=== PATIENT | female | born 1955 | race Caucasian/White ===

== ENCOUNTER 2020-05-29 10:11 | Inpatient (IN) | payer BC, MEDICARE, SELFPAY ==
[2020-05-29] VITALS (11 sets, daily range): BP systolic 117–138; BP diastolic 63–84; PULSE 55–81; RESP 16–20; TEMP 36.7–37; O2SAT 91–96; BMI 33.7
--- NOTE | 2020-05-29 10:19 | XRR_ITS ---
PROCEDURE INFORMATION: Exam: XR Chest, 1 View Exam date and time: 05/29/2020 10:21 AM Age: 64 years old Clinical indication: Cough and dyspnea; Patient HX: Covid +. TECHNIQUE: Imaging protocol: XR of the chest Views: 1 view. COMPARISON: [facility] Chest 2 views 04/14/2015 3:03 PM FINDINGS: Lungs: No focal peripheral lung consolidation, air bronchogram formation, or silhouette sign. Pleural space: No pleural effusion or pneumothorax. Heart/Mediastinum: The cardiac silhouette is not enlarged. The mediastinal contours are normal. Bones/joints: No acute osseous abnormality. XR/XR chest 1V portable [id number] IMPRESSION: No radiographic signs of pneumonia. Noncontrast CT CHEST would be more sensitive in detecting mild or early changes of COVID-19 pneumonia.
--- NOTE | 2020-05-29 10:19 | ECG_ITS ---
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 Measurements Intervals [place] Rate: 74 P: 41 AL: 153 QRS: 30 QRSD: 94 T: 20 QT: 374 QTc: 415 Interpretive Statements SINUS RHYTHM LOW QRS VOLTAGE IN PRECORDIAL LEADS [QRS DEFLECTION < 1.0 mV IN CHEST LEADS] NONSPECIFIC ST & T-WAVE ABNORMALITY No previous ECG available for comparison Electronically Signed On 05-30-2020 18:10:23 CDT by Erlin Bedoya M.D. [id number]
--- NOTE | 2020-05-29 11:01 | ED_ITS ---
HPI - SOB/Dyspnea General: Chief Complaint: Shortness of Breath/Dyspnea Stated Complaint: SOB Time Seen by Provider: 05/29/20 10:16 History of Present Illness: HPI Narrative: 84-year-old female comes in complaining of productive cough anosmia that began yesterday she states she had a rapid COVID test done at [facility] yesterday. We called and checked there using the Torres antibody testing. She states this initially began after she been out mowing she was exposed to a lot of dust thought she had an allergy reaction she seen her primary care doctor was started on steroids inhalers that seem to help but then she became worse again including running a fever. She has had minimally productive cough. MD elicited complaint: shortness of breath and cough Pertinent past history: asthma Onset (ago): day(s) Timing: constant Severity: moderate Exacerbating factors: exertion and coughing Relieving factors: rest Known history of: asthma Associated symptoms: Reports chest congestion and cough; Deny abdominal pain, chest pain, diaphoresis, dizziness, extremity pain, fever(s), hemoptysis, lightheadedness, myalgias, nausea, orthopnea, palpi tations, paresthesias, polydipsia, polyuria, rash, syncope or vomiting Treatment prior to arrival: bronchodilator Review of Systems Const: Denies: fever(s) or diaphoresis ENMT: Denies: throat pain, ear or mastoid pain, nasal discharge or nasal congestion Card: Denies: chest pain, palpitations, lightheadedness, syncope or orthopnea Resp: Reports: chest congestion; Denies: hemoptysis GI: Denies: abdominal pain, nausea or vomiting : Denies: flank pain, difficulty voiding, dysuria, urinary frequency or urinary urgency Musc: Denies: extremity pain Skin/Breast: Denies: rash or pruritus Neuro: Denies: dizziness Endo: Denies: polyuria or polydipsia PFSH ED PFSH: Medical History (Updated 05/31/20 @ 15:52 by Jeffrey Hickman DO) CKD (chronic kidney disease) stage 2, GFR 60-89 ml/min Hypertension Morbid obesity Surgical History History of cholecystectomy Family History Other CAD (coronary artery disease) Denies family history of Cancer Social History (Updated 05/29/20 @ 16:15 by Melania Vasquez MD) Smoking and tobacco status: never smoked Alcohol intake: never Substance/Drug Use: never Household members: spouse Marital status: 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 Exam Const: COMMON NORMALS: no acute distress GENERAL APPEARANCE: cooperative and comfortable ORIENTATION/CONSCIOUSNESS: Yes awake, Yes oriented to person, Yes oriented to place and Yes oriented to time HENMT: COMMON NORMALS: normocephalic, atraumatic and hearing grossly normal bilaterally HEAD & SCALP: normocephalic and atraumatic Eye: COMMON NORMALS: Equal, round and reactive pupils present, EOMs intact bilaterally, conjunctivae normal and no scleral icterus CONJUNCTIVA: Yes conjunctivae normal PUPIL: Yes Equal, round and reactive pupils present Neck/C-Spine: COMMON NORMALS: full ROM, no lymphadenopathy, supple and no JVD Lymph: LYMPHATIC: no lymphadenopathy noted and no lymphedema noted Resp: COMMON NORMALS: normal respiratory effort, No retractions, No use of accessory muscles and clear to auscultation bilaterally AUSCULTATION: clear to auscultation bilaterally Cardio: COMMON NORMALS: no JVD, regular rate, regular rhythm and No murmurs present (Cardio) RATE: regular rate RHYTHM: regular rhythm GI: COMMON NORMALS: Soft to palpation and No hepatosplenomegaly present AUSCULTATION: Yes normoactive bowel sounds PALPATION: Yes Soft to palpation, No Tenderness to palpation present (GI), No Guarding due to palpation present (GI) and Yes No hepatosplenomegaly present Extremity: COMMON NORMALS: normal to inspection, capillary refill normal, no clubbing, cyanosis or edema, no calf tenderness and no pedal edema Neuro: SENSORIUM/ORIENTATION: Yes oriented to person, Yes oriented to place and Yes oriented to time Skin: COMMON NORMALS: no rashes or lesions noted GENERAL SKIN EXAM: no rashes or lesions noted Course Vital Signs: Vital signs: Vital Signs Temperature 97.8 F 05/31/20 12:00 Pulse Rate 62 05/31/20 15:00 Respiratory Rate 21 H 05/31/20 15:00 Blood Pressure 139/74 05/31/20 15:00 Pulse Oximetry 94 05/31/20 15:00 MDM - SOB/Dyspnea MDM Narrative: Medical decision making narrative: Rapid antigen test was positive. Her inflammatory tests are generally negative and I am little bit concerned however by the fact that she is immunosuppressed on the prednisone has a history of underlying chronic respiratory disease and her baseline oxygen saturation is borderline to low. I think at this point it be best for her to be admitted to observation in the VICU to make sure she does not deteriorate. Discussed with the patient and she is in agreement discussed Dr. Vasquez who is on for the VQ and she will see the patient. Lab Data: Labs: Lab Results 05/29/20 05/29/20 05/29/20 Range/Units 11:00 11:00 11:00 WBC 5.4 (4.0-10.0) 10^3/ uL RBC 4.67 (4.1-5.3) 10^6/u L Hgb 14.6 (11.5-15.3) g/dL Hct 45.1 (37.0-47.0) % MCV 96.6 (81-99) fL MCH 31.3 (28.0-34.0) pg MCHC 32.4 (30.0-36.0) g/dL RDW 13.1 (12.1-15.1) % Plt Count 169 (130-400) 10^3/c mm MPV 10.9 H (7.4-10.4) fL Neut % (Auto) 79.0 % Lymph % (Auto) 11.4 % Towns % (Auto) 9.0 % Eos % (Auto) 0.0 % Baso % (Auto) 0.2 % Neut # (Auto) 4.28 (1.8-7.7) 10^3/u L Lymph # (Auto) 0.6 L (0.8-4.8) 10^3/u L Towns # (Auto) 0.5 (0.2-0.9) 10^3/u L Eos # (Auto) 0.0 (0.0-0.8) 10^3/u L Baso # (Auto) 0.0 (0.0-0.1) 10^3/u L Nucleated RBC % (a uto) 0 % Nucleated RBCs # 0.0 /100WBC Fibrinogen 446 (174-498) mg/dL D-Dimer 0.45 (0-0.59) ug/mIFE U Sodium 131 L (136-145) mmol/L Potassium 3.8 (3.5-5.1) mmol/L Chloride 93 L (98-107) mmol/L Carbon Dioxide 27 (22-29) mmol/L Anion Gap 14.8 (5-19) BUN 14 (8-23) mg/dL Creatinine 0.8 (0.5-0.9) mg/dL GFR Calculation 72.0 L (90-130) mL/min Glucose 131 H (65-115) mg/dL POC Glucose (70-110) mg/dL Calculated Osmolal ity 270 L (285-295) mOsm/k g Lactic Acid (0.5-2.2) mmol/L Calcium 9.4 (8.5-10.5) mg/dL Ferritin 771 H (15-150) ng/mL Total Bilirubin 0.4 (0.15-1.2) mg/dL AST 47 H (0-32) U/L ALT 41 H (0-33) U/L Alkaline Phosphata se 66 (35-105) IU/L Lactate Dehydrogen ase 164 (135-214) U/L C-Reactive Protein 21.2 H (0.0-4.9) mg/L Total Protein 8.8 H (6.6-8.7) g/dL Albumin 4.1 (3.5-5.2) g/dL Globulin 4.7 H (1.3-4.6) g/dL Procalcitonin 0.05 (0-0.5) ng/mL SARS-CoV-2 Ag (Rap id) (Negative) 05/29/20 05/29/20 05/29/20 Range/Units 11:27 13:47 19:48 WBC (4.0-10.0) 10^3/ uL RBC (4.1-5.3) 10^6/u L Hgb (11.5-15.3) g/dL Hct (37.0-47.0) % MCV (81-99) fL MCH (28.0-34.0) pg MCHC (30.0-36.0) g/dL RDW (12.1-15.1) % Plt Count (130-400) 10^3/c mm MPV (7.4-10.4) fL Neut % (Auto) % Lymph % (Auto) % Towns % (Auto) % Eos % (Auto) % Baso % (Auto) % Neut # (Auto) (1.8-7.7) 10^3/u L Lymph # (Auto) (0.8-4.8) 10^3/u L Towns # (Auto) (0.2-0.9) 10^3/u L Eos # (Auto) (0.0-0.8) 10^3/u L Baso # (Auto) (0.0-0.1) 10^3/u L Nucleated RBC % (a uto) % Nucleated RBCs # /100WBC Fibrinogen (174-498) mg/dL D-Dimer (0-0.59) ug/mIFE U Sodium (136-145) mmol/L Potassium (3.5-5.1) mmol/L Chloride (98-107) mmol/L Carbon Dioxide (22-29) mmol/L Anion Gap (5-19) BUN (8-23) mg/dL Creatinine (0.5-0.9) mg/dL GFR Calculation (90-130) mL/min Glucose (65-115) mg/dL POC Glucose 150 (70-110) mg/dL Calculated Osmolal ity (285-295) mOsm/k g Lactic Acid 1.2 (0.5-2.2) mmol/L Calcium (8.5-10.5) mg/dL Ferritin (15-150) ng/mL Total Bilirubin (0.15-1.2) mg/dL AST (0-32) U/L ALT (0-33) U/L Alkaline Phosphata se (35-105) IU/L Lactate Dehydrogen ase (135-214) U/L C-Reactive Protein (0.0-4.9) mg/L Total Protein (6.6-8.7) g/dL Albumin (3.5-5.2) g/dL Globulin (1.3-4.6) g/dL Procalcitonin (0-0.5) ng/mL SARS-CoV-2 Ag (Rap id) Positive H (Negative) 05/30/20 05/30/20 05/30/20 Range/Units 05:30 05:30 05:30 WBC 3.6 L (4.0-10.0) 10^3/ uL RBC 4.42 (4.1-5.3) 10^6/u L Hgb 13.6 (11.5-15.3) g/dL Hct 42.5 (37.0-47.0) % MCV 96.2 (81-99) fL MCH 30.8 (28.0-34.0) pg MCHC 32.0 (30.0-36.0) g/dL RDW 12.9 (12.1-15.1) % Plt Count 162 (130-400) 10^3/c mm MPV 11.3 H (7.4-10.4) fL Neut % (Auto) 56.8 % Lymph % (Auto) 30.0 % Towns % (Auto) 11.8 % Eos % (Auto) 0.3 % Baso % (Auto) 0.3 % Neut # (Auto) 2.03 (1.8-7.7) 10^3/u L Lymph # (Auto) 1.1 (0.8-4.8) 10^3/u L Towns # (Auto) 0.4 (0.2-0.9) 10^3/u L Eos # (Auto) 0.0 (0.0-0.8) 10^3/u L Baso # (Auto) 0.0 (0.0-0.1) 10^3/u L Nucleated RBC % (a uto) 0 % Nucleated RBCs # 0.0 /100WBC Fibrinogen (174-498) mg/dL D-Dimer (0-0.59) ug/mIFE U Sodium 134 L (136-145) mmol/L Potassium 3.9 (3.5-5.1) mmol/L Chloride 96 L (98-107) mmol/L Carbon Dioxide 29 (22-29) mmol/L Anion Gap 12.9 (5-19) BUN 14 (8-23) mg/dL Creatinine 0.6 (0.5-0.9) mg/dL GFR Calculation 100.3 (90-130) mL/min Glucose 86 (65-115) mg/dL POC Glucose (70-110) mg/dL Calculated Osmolal ity 274 L (285-295) mOsm/k g Lactic Acid (0.5-2.2) mmol/L Calcium 9.3 (8.5-10.5) mg/dL Ferritin (15-150) ng/mL Total Bilirubin 0.3 (0.15-1.2) mg/dL AST 41 H (0-32) U/L ALT 37 H (0-33) U/L Alkaline Phosphata se 56 (35-105) IU/L Lactate Dehydrogen ase (135-214) U/L C-Reactive Protein 21.6 H (0.0-4.9) mg/L Total Protein 7.4 (6.6-8.7) g/dL Albumin 3.7 (3.5-5.2) g/dL Globulin 3.7 (1.3-4.6) g/dL Procalcitonin (0-0.5) ng/mL SARS-CoV-2 Ag (Rap id) (Negative) 05/30/20 05/30/20 05/30/20 Range/Units 05:30 05:30 07:35 WBC (4.0-10.0) 10^3/ uL RBC (4.1-5.3) 10^6/u L Hgb (11.5-15.3) g/dL Hct (37.0-47.0) % MCV (81-99) fL MCH (28.0-34.0) pg MCHC (30.0-36.0) g/dL RDW (12.1-15.1) % Plt Count (130-400) 10^3/c mm MPV (7.4-10.4) fL Neut % (Auto) % Lymph % (Auto) % Towns % (Auto) % Eos % (Auto) % Baso % (Auto) % Neut # (Auto) (1.8-7.7) 10^3/u L Lymph # (Auto) (0.8-4.8) 10^3/u L Towns # (Auto) (0.2-0.9) 10^3/u L Eos # (Auto) (0.0-0.8) 10^3/u L Baso # (Auto) (0.0-0.1) 10^3/u L Nucleated RBC % (a uto) % Nucleated RBCs # /100WBC Fibrinogen 395 (174-498) mg/dL D-Dimer <= 0.27 (0-0.59) ug/mIFE U Sodium (136-145) mmol/L Potassium (3.5-5.1) mmol/L Chloride (98-107) mmol/L Carbon Dioxide (22-29) mmol/L Anion Gap (5-19) BUN (8-23) mg/dL Creatinine (0.5-0.9) mg/dL GFR Calculation (90-130) mL/min Glucose (65-115) mg/dL POC Glucose 98 (70-110) mg/dL Calculated Osmolal ity (285-295) mOsm/k g Lactic Acid (0.5-2.2) mmol/L Calcium (8.5-10.5) mg/dL Ferritin 697 H (15-150) ng/mL Total Bilirubin (0.15-1.2) mg/dL AST (0-32) U/L ALT (0-33) U/L Alkaline Phosphata se (35-105) IU/L Lactate Dehydrogen ase 176 (135-214) U/L C-Reactive Protein (0.0-4.9) mg/L Total Protein (6.6-8.7) g/dL Albumin (3.5-5.2) g/dL Globulin (1.3-4.6) g/dL Procalcitonin (0-0.5) ng/mL SARS-CoV-2 Ag (Rap id) (Negative) Discharge Plan Discharge Patient Disposition: Admitted As Inpatient Admit Provider: Melania Vasquez Clinical Impression: COVID-19 virus infection, Morbid obesity, CKD (chronic kidney disease) stage 2, GFR 60-89 ml/min, Acute exacerbation of chronic obstructive airways disease Condition: Stable Interventions: ED Discharge Assessment Last Done: 05/29/20 16:58 ED Charges Last Done: 05/29/20 16:58 Discharge Date/Time: 05/29/20 17:18 Coding Level of Care Code ED Hand Turner for Lindsayg Fwd Exam Comprehensive
[2020-05-29 11:19] LABS: Basophils % 0.2 %; Hematocrit 45.1 % (37.0-47.0); Hemoglobin 14.6 g/dL (11.5-15.3); Lymphocytes # 0.6 10^3/uL (0.8-4.8); Lymphocytes % 11.4 %; Mean Corpuscular HGB Conc 32.4 g/dL (30.0-36.0); Mean Corpuscular Hemoglobin 31.3 pg (28.0-34.0); Mean Corpuscular Volume 96.6 fL (81-99); Mean Platelet Volume 10.9 fL (7.4-10.4); Monocytes # 0.5 10^3/uL (0.2-0.9); Neutrophils # 4.28 10^3/uL (1.8-7.7); Nucleated Red Blood Cells % 0 %; Platelet Count 169 10^3/cmm (130-400); Red Blood Count 4.67 10^6/uL (4.1-5.3); Red Cell Distribution Width 13.1 % (12.1-15.1); White Blood Count 5.4 10^3/uL (4.0-10.0)
[2020-05-29 11:30] LABS: Fibrinogen 446 mg/dL (174-498)
[2020-05-29 11:32] LABS: D Dimer 0.45 ug/mIFEU (0-0.59)
[2020-05-29 11:44] LABS: Procalcitonin 0.05 ng/mL (0-0.5)
[2020-05-29 11:55] LABS: Alanine Aminotransferase 41 U/L (0-33); Albumin Level 4.1 g/dL (3.5-5.2); Alkaline Phosphatase 66 IU/L (35-105); Anion Gap 14.8 (5-19); Aspartate Amino Transferase 47 U/L (0-32); Blood Urea Nitrogen 14 mg/dL (8-23); C Reactive Protein 21.2 mg/L (0.0-4.9); Calcium 9.4 mg/dL (8.5-10.5); Carbon Dioxide 27 mmol/L (22-29); Chloride 93 mmol/L (98-107); Ferritin 771 ng/mL (15-150); Globulin 4.7 g/dL (1.3-4.6); Glucose 131 mg/dL (65-115); Lactate Dehydrogenase 164 U/L (135-214); Osmolality Calculated 270 mOsm/kg (285-295); Potassium 3.8 mmol/L (3.5-5.1); Sodium 131 mmol/L (136-145); Total Bilirubin 0.4 mg/dL (0.15-1.2); Total Protein 8.8 g/dL (6.6-8.7)
[2020-05-29 11:57] LABS: Lactic Sepsis W/Reflex 1.2 mmol/L (0.5-2.2)
--- NOTE | 2020-05-29 13:55 | PC.NURSE ---
Rapid Covid Swab obtained and taken to lab.
[2020-05-29 14:20] LABS: SARS Covid-2 Antigen Positive (Negative)
--- NOTE | 2020-05-29 16:14 | P.HP_ITS ---
Providers/Chief Complaint Admitting Physician: Melania Vasquez MD Primary Care Provider: Michael Alston MD Chief Complaint: SOB/COVID POSITIVE History of Present Illness Jennifer Warner is a 64 year old female with PMHx of HTN, CKD stage 2, presents from home this afternoon following development of worsening persistent primarily dry cough with some intermittent white/clear sputum production, shortness of breath, loss of taste since early this morning, fatigue and generalized weakne ss. Patient recalls being seen by Dr. Alston earlier this week secondary to shortness of breath and cough which she attributed to being outside and inhaling a lot of dust while mowing the lawn. She was prescribed Breo inhaler as well as some steroids which resulted in significant improvement in her symptoms particularly between Sunday and Sunday. On she started to feel a little fatigued and cough began to recur. She also developed some mild diarrhea days a week wore on she felt progressively more weak and fatigued. 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 She presented to the [facility] yesterday for testing and was found to be positive for COVID-19. Overnight she felt weaker, more short of breath and had more persistent cough which prompted ER visit today. Rapid testing for COVID-19 here is positive as well. She did check her oxygen saturation earlier this morning at home and it was about 85% on room air. She is not typically oxygen dependent. She does admit to having had a chronic cough that seems to flare-up with exposure to particular allergens but is otherwise typically controlled. She lives at home with her and her elderly 91-year-old mother. Neither of them have had any symptoms. She has about 15 grandchildren who have been coming to visit more frequently over the past month, none of them have had any symptoms that she is aware of. She got more nervous about potentially having COVID-19 when she made her morning coffee and could not tasted it. She denies having had any malaise, abdominal pain, nausea/vomiting, changes in her urination, blood in her urine or her stool, lightheadedness or dizziness, headaches, loss of smell. Work-up so far reveals normal white count at 5.4, hemoglobin at 14.6, mild hyponatremia with a sodium of 131 with otherwise normal electrolytes and normal renal function, mild hyperglycemia with a blood glucose of 131, normal LDH, procalcitonin, lactic acid, ferritin of 7721, AST of 47, ALT of 41, CRP of 21.2, normal d-dimer and fibrinogen. Chest x-ray is reported as unremarkable. I requested CT chest for further evaluation. Vital signs so far have been stable and she is afebrile. Saturating at about 92% on room air. I called and confirmed that we have enough Remdesevir if needed for at least 1 patient. She will be admitted to the viral ICU. Currently on isolation precautions. Review of Systems Const: Reports: fatigue; Denies: fever(s), chills, body aches, malaise or night sweats Eyes: Denies: change in vision ENMT: Reports: dry mouth and other (loss of taste) Card: Denies: chest pain, palpitations, edema, swelling of feet/ankles, lightheadedness or syncope Resp: Reports: dyspnea, productive cough (clear sputum) and non-productive cough; Denies: wheezing GI: Reports: diarrhea; Denies: abdominal pain, nausea, vomiting, hematemesis or hematochezia : Denies: difficulty voiding, dysuria, urinary frequency or hematuria Musc: Denies: back pain Skin/Breast: Denies: rash Neuro: Reports: weakness in extremities (generalized); Denies: numbness in extremities, difficulty walking or dizziness Psych: Denies: anxiety Medications/Allergies Home Medications Medication Instructions Recorded Confirmed Last Taken Type albuterol sulfate 1 puff INHALATION Q6H PRN 05/29/20 05/29/20 05/29/20 History aspirin 325 mg PO DAILY 05/29/20 05/29/20 05/29/20 History cholecalciferol (vitamin D3) 25 mcg PO DAILY 05/29/20 05/29/20 05/29/20 History [Vitamin D3] fluticasone furoate-vilanterol 1 inh INHALATION DAILY 05/29/20 05/29/20 05/29/20 History [Breo Ellipta] irbesartan-hydrochlorothiazide 1 tab PO DAILY 05/29/20 05/29/20 05/29/20 History prednisone 20 mg PO DAILY 05/29/20 05/29/20 05/29/20 History Allergies Allergy/AdvReac Type Severity Reaction Status Date / Time No Known Allergies Allergy Verified 05/29/20 10:30 PFSH Acute PFSH: Medical History (Updated 05/29/20 @ 16:29 by Melania Vasquez MD) CKD (chronic kidney disease) stage 2, GFR 60-89 ml/min Hypertension Morbid obesity Surgical History History of cholecystectomy Family History Other CAD (coronary artery disease) Denies family history of Cancer Social History (Updated 05/29/20 @ 16:15 by Melania Vasquez MD) Smoking and tobacco status: never smoked Alcohol intake: never Substance/Drug Use: never Household members: spouse Marital status: 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 Last Vital Signs Temp 98.1 F 05/29/20 10:21 Pulse 81 05/29/20 10:21 Resp 18 05/29/20 10:21 BP 126/80 05/29/20 10:21 Pulse Ox 92 05/29/20 10:21 Weight last 48 hrs Weight 100.698 kg Physical Exam Const: COMMON NORMALS: no acute distress, patient oriented x3 and alert GENERAL APPEARANCE: cooperative and comfortable; not ill appearing NUTRITIONAL APPEARANCE: obese ORIENTATION/CONSCIOUSNESS: Yes awake HENMT: COMMON NORMALS: normocephalic, atraumatic and hearing grossly normal bilaterally HEAD & SCALP: normocephalic and atraumatic Eye: COMMON NORMALS: Equal, round and reactive pupils present, EOMs intact bilaterally and conjunctivae normal CONJUNCTIVA: Yes conjunctivae normal PUPIL: Yes Equal, round and reactive pupils present Neck/C-Spine: COMMON NORMALS: full ROM GENERAL: Yes normal visual inspection and Yes trachea midline Resp: COMMON NORMALS: normal respiratory effort, No retractions, No use of accessory muscles and clear to auscultation bilaterally EFFORT & INSPECTION: Yes able to speak in complete sentences, Yes symmetric chest movement and No tachypneic AUSCULTATION: clear to auscultation bilaterally OTHER: on RA; oxygen saturation is about 90 to 92% Cardio: COMMON NORMALS: regular rate, regular rhythm, S1 normal heart sound present, S2 normal heart sound present and No murmurs present (Cardio) RATE: regular rate RHYTHM: regular rhythm HEART SOUNDS: S1 normal heart sound present and S2 normal heart sound present GI: COMMON NORMALS: Normal to inspection, nondistended, normoactive bowel sounds present, Soft to palpation and non-tender INSPECTION: Yes central obesity PALPATION: Yes Soft to palpation Extremity: COMMON NORMALS: normal to inspection, full ROM and no clubbing, cyanosis or edema; negative for no pedal edema Neuro: COMMON NORMALS: patient oriented x3, moves all extremities, no focal motor deficits, no sensory deficits noted and gait normal Psych: COMMON NORMALS: mental status grossly normal, Normal thought process present, cooperative, normal affect and speech normal SPEECH: Yes normal speech THOUGHT PROCESS: Normal thought process present Skin: COMMON NORMALS: no rashes or lesions noted, no jaundice, no petechiae and no mottling GENERAL SKIN EXAM: no rashes or lesions noted Data : 05/29/20 11:00 05/29/20 11:00 Micro: Microbiology 05/29/20 11:08 Blood Culture - Preliminary Blood SPECIMEN COLLECTED 05/29/20 11:00 Blood Culture - Preliminary Blood SPECIMEN COLLECTED A&P Assessment and plan (1) COVID-19 virus infection: -Initially tested yesterday at [facility], found to be positive -Overnight had worsening shortness of breath, ageusia, more persistent primarily dry cough with some intermittent white/clear sputum production and generally feeling unwell -Repeat testing here, rapid COVID-19 test positive -Currently saturating at 90 to 92% on room air. Consider Remdesevir if noted hypoxia or need for supplemental oxygen support -Not overtly ill-appearing -Initiate dexamethasone -No leukocytosis, has been afebrile, lactic acid, d-dimer, pro calcitonin, LDH normal, noted ferritin elevation at 771, CRP-21.2. Continue to monitor inflammatory markers -Close monitoring of respiratory status -Close monitoring of vital signs -Advair, Spiriva, ascorbic acid, zinc -CXR unremarkable -order CT chest -noted mild AST elevation-47, ALT-41 -f/u blood cx, sputum cx Status: Acute (2) Morbid obesity: -BMI-34 kg/m2 Status: Chronic (3) Hypertension: -VSS; continue to monitor -resume oral antihypertensive Status: Chronic Qualifiers: Hypertension type: essential hypertension Qualified Code(s): I10 - Essential (primary) hypertension (4) CKD (chronic kidney disease) stage 2, GFR 60-89 ml/min: -baseline Cr is 0.9-1.0 Status: Chronic Additional A&P Information -resume ASA -hyperglycemia, anticipate more of this with steroid use; Accuchecks, ISS -mild hyponatremia; Na-131; gentle IVF hydration -regular diet as tolerated -GI ppx with PPI -DVT ppx with lovenox -Dispo: home -Code status: FULL code -[facility] Medical Necessity Statement*: Jennifer Prince Timmy's hospital stay will be less than 2 midnights for management of COVID-19 infection with concern for potential for hypoxia given current oxygen saturation and symptoms. Time Spent in Patient Care: Greater than 35 minutes (>than 50% of time spent in counselling and/or direct pt care on unit) . Coding Level of Care Code Acute Beck Operator for Chg Fwd Diagnoses COVID-19 virus infection U07.1 Morbid obesity E66.01 Hypertension I10 Hypertension type: essential hypertension CKD (chronic kidney disease) stage 2, GFR 60-89 ml/min N18.2
--- NOTE | 2020-05-29 18:03 | PC.NURSE ---
PATIENT TO VICU 15 VIA WHEELCHAIR WITH MANAGER ORGANIZATIONAL ; PATIENT DENIES ANY INCREASE IN SOB AT THIS TIME ; PATIENT DENIES ANY PAIN AT THIS TIME ; VSS ; PATIENT MONITORED AND ORIENTED TO ROOM ; CALL LIGHT AT PATIENT SIDE
--- NOTE | 2020-05-29 18:16 | PC.NURSE ---
PATIENT O2 SATS DECLINED TO 88-89 ; PATIENT PLACED ON 2LPM NC
[2020-05-29] MEDS: sodium chloride 0.9% 1,000 ML 75 ML IV (19:19)
[2020-05-29] MEDS: ascorbic acid 500 mg Tablet PO (19:22)
[2020-05-29] MEDS: enoxaparin 40 mg/0.4 mL Syringe SUBCUT (19:24)
[2020-05-29 19:54] LABS: Glucose Point of Care 150 mg/dL (70-110)
[2020-05-30] VITALS (25 sets, daily range): BP systolic 106–151; BP diastolic 54–97; PULSE 55–75; RESP 16–25; TEMP 36.7–37.3; O2SAT 90–96
[2020-05-30 05:56] LABS: Basophils % 0.3 %; Eosinophils % 0.3 %; Hematocrit 42.5 % (37.0-47.0); Hemoglobin 13.6 g/dL (11.5-15.3); Lymphocytes # 1.1 10^3/uL (0.8-4.8); Mean Corpuscular Hemoglobin 30.8 pg (28.0-34.0); Mean Corpuscular Volume 96.2 fL (81-99); Mean Platelet Volume 11.3 fL (7.4-10.4); Monocytes # 0.4 10^3/uL (0.2-0.9); Monocytes % 11.8 %; Neutrophils # 2.03 10^3/uL (1.8-7.7); Neutrophils % 56.8 %; Nucleated Red Blood Cells % 0 %; Platelet Count 162 10^3/cmm (130-400); Red Blood Count 4.42 10^6/uL (4.1-5.3); Red Cell Distribution Width 12.9 % (12.1-15.1); White Blood Count 3.6 10^3/uL (4.0-10.0)
[2020-05-30 06:10] LABS: Fibrinogen 395 mg/dL (174-498)
[2020-05-30 06:12] LABS: D Dimer <= 0.27 ug/mIFEU (0-0.59)
[2020-05-30 06:15] LABS: C Reactive Protein 21.6 mg/L (0.0-4.9); Ferritin 697 ng/mL (15-150)
[2020-05-30 06:16] LABS: Alanine Aminotransferase 37 U/L (0-33); Albumin Level 3.7 g/dL (3.5-5.2); Alkaline Phosphatase 56 IU/L (35-105); Anion Gap 12.9 (5-19); Aspartate Amino Transferase 41 U/L (0-32); Blood Urea Nitrogen 14 mg/dL (8-23); Calcium 9.3 mg/dL (8.5-10.5); Carbon Dioxide 29 mmol/L (22-29); Chloride 96 mmol/L (98-107); Globulin 3.7 g/dL (1.3-4.6); Glomerular Filtration Rate 100.3 mL/min (90-130); Glucose 86 mg/dL (65-115); Osmolality Calculated 274 mOsm/kg (285-295); Potassium 3.9 mmol/L (3.5-5.1); Sodium 134 mmol/L (136-145); Total Bilirubin 0.3 mg/dL (0.15-1.2); Total Protein 7.4 g/dL (6.6-8.7)
[2020-05-30 06:19] LABS: Lactate Dehydrogenase 176 U/L (135-214)
[2020-05-30 07:42] LABS: Glucose Point of Care 98 mg/dL (70-110)
--- NOTE | 2020-05-30 08:02 | PC.NURSE ---
PATIENT RESTING QUIETLY IN BED ; PATIENT DENIES ANY INCREASE IN SOB OR PAIN AT THIS TIME ; VSS
--- NOTE | 2020-05-30 09:22 | P.PN_ITS ---
Subjective Subjective: Interval history: Patient did well overnight per nursing staff, remains on 2 L nasal cannula with saturation at about 94%. He received bolus of Remdesevir and is now on maintenance daily dosing. Mild leukopenia today, otherwise inflammatory markers are within normal limits other than ferritin and CRP which are trending down; improved LFTs. Hemodynamically stable, afebrile. Voiding independently without difficulty. Had requested ED physician to order CT scan of the chest which was not done nor ordered. Now requiring 3 L NC, reports feeling about the same as she did yesterday. Has had 2 bouts of loose stool. Medications: Reviewed: Yes Medication Review Details: Active Medications Generic Name Dose Route Start Last Admin Trade Name Freq PRN Reason Stop Dose Admin Acetaminophen 650 mg 05/29/20 17:22 Tylenol PO Q6H PRN Mild/Mod Pain Or Temp >/= 101 Ascorbic Acid 500 mg 05/29/20 18:00 05/29/20 19:22 Vitamin C PO 500 mg BID GABE Administration Aspirin 325 mg 05/30/20 09:00 Aspirin PO DAILY GABE Dexamethasone 5 mg 05/30/20 09:00 Decadron IVP DAILY GABE Dextrose 25 ml 05/29/20 17:22 D50w IVP ONCE PRN hypoglycemia prot ocol Protocol Dextrose 50 ml 05/29/20 17:22 D50w IVP PRN PRN hypoglycemia prot ocol Protocol Enoxaparin Sodium 40 mg 05/29/20 19:00 05/29/20 19:24 Lovenox SUBCUT 40 mg Q24H GABE Administration Glucagon 1 mg 05/29/20 17:22 Glucagen IM ONCE PRN Adult Acute Hypog lycemia Prot. Protocol Hydrochlorothiazid e 12.5 mg 05/30/20 09:00 Hctz PO DAILY GABE Dextrose 500 mls @ 100 mls /hr 05/29/20 17:22 D5w IV ONCE PRN Adult Acute Hypog lycemia Prot Protocol Sodium Chloride 1,000 mls @ 75 ml s/hr 05/29/20 17:22 05/30/20 07:49 Sodium Chloride 0.9% IV Not Given .[id number] GABE remdesivir (EUA) 1 00 mg/ 100 mls @ 100 mls /hr 05/30/20 19:00 Sodium Chloride IV 06/02/20 19:59 Q24H GABE Insulin Aspart 0 unit 05/29/20 18:00 05/30/20 07:50 Novolog SUBCUT Not Given WM&BEDTIME GABE Protocol Losartan Potassium 50 mg 05/30/20 09:00 Cozaar PO DAILY GABE Pantoprazole Sodiu m 40 mg 05/30/20 09:00 Protonix PO DAILY GABE Fluticasone/Salmet aleyda 1 puff 05/29/20 20:00 Advair Diskus 25 0-50 INHALATION BID.RESPIRATORY S CH Tiotropium [place] 18 mcg 05/30/20 08:00 Spiriva INHALATION DAILY.RESPIRATORY GABE Vitamin D 1,000 unit 05/30/20 09:00 Vitamin D3 PO DAILY GABE Zinc Gluconate 50 mg 05/30/20 09:00 Zinc Gluconate PO DAILY GABE No Known Allergies Allergy (Verified 05/29/20 10:30) Vitals/I&O/Wt Last Vital Signs Temp 98.0 F 05/30/20 07:42 Pulse 72 05/30/20 07:42 Resp 18 05/30/20 07:42 BP 108/54 05/30/20 07:42 Pulse Ox 94 05/30/20 07:42 05/29/20 05/30/20 05/30/20 22:59 06:59 14:59 Intake Total 1200 / 1200 240 / 240 Balance 1200 / 1200 240 / 240 Weight last 48 hrs Weight 100.698 kg Physical Exam Const: COMMON NORMALS: no acute distress, patient oriented x3 and alert GENERAL APPEARANCE: cooperative, comfortable and ill appearing (somewhat) NUT RITIONAL APPEARANCE: obese ORIENTATION/CONSCIOUSNESS: Yes awake OTHER: - fatigues easily HENMT: COMMON NORMALS: normocephalic, atraumatic and hearing grossly normal bilaterally HEAD & SCALP: normocephalic and atraumatic Eye: COMMON NORMALS: Equal, round and reactive pupils present, EOMs intact bilaterally and conjunctivae normal CONJUNCTIVA: Yes conjunctivae normal PUPIL: Yes Equal, round and reactive pupils present Neck/C-Spine: COMMON NORMALS: full ROM GENERAL: Yes normal visual inspection and Yes trachea midline Resp: COMMON NORMALS: normal respiratory effort, No retractions, No use of accessory muscles and clear to auscultation bilaterally EFFORT & INSPECTION: Yes able to speak in complete sentences, Yes symmetric chest movement and No tachypneic AUSCULTATION: clear to auscultation bilaterally OTHER: on 2-3 L NC; oxygen saturation is about 90 to 92% Cardio: COMMON NORMALS: regular rate, regular rhythm, S1 normal heart sound present, S2 normal heart sound present and No murmurs present (Cardio) RATE: regular rate and bradycardic (intermittently) RHYTHM: regular rhythm HEART SOUNDS: S1 normal heart sound present and S2 normal heart sound present GI: COMMON NORMALS: Normal to inspection, nondistended, normoactive bowel sounds present, Soft to palpation and non-tender INSPECTION: Yes central obesity PALPATION: Yes Soft to palpation Extremity: COMMON NORMALS: normal to inspection, full ROM and no clubbing, cyanosis or edema; negative for no pedal edema Neuro: COMMON NORMALS: patient oriented x3, moves all extremities, no focal motor deficits, no sensory deficits noted and gait normal SENSORIUM/ORIENTATION: Yes alert Psych: COMMON NORMALS: mental status grossly normal, Normal thought process present, cooperative, normal affect and speech normal SPEECH: Yes normal speech THOUGHT PROCESS: Normal thought process present Skin: COMMON NORMALS: no rashes or lesions noted, no jaundice, no petechiae and no mottling GENERAL SKIN EXAM: no rashes or lesions noted Data : 05/30/20 05:30 05/30/20 05:30 Micro: Microbiology 05/29/20 11:08 Blood Culture - Preliminary Blood SPECIMEN COLLECTED 05/29/20 11:00 Blood Culture - Preliminary Blood SPECIMEN COLLECTED A&P Assessment and plan (1) COVID-19 virus infection: -Rapid COVID-19 test positive -started on Remdesevir (day 2) due to noted hypoxia and need for supplemental oxygen support -on dexamethasone -mild leukopenia today, has been afebrile, lactic acid, d-dimer, pro calcitonin, LDH normal, ferritin trending down (771->697), CRP stable at -21.6. Continue to monitor inflammatory markers -Close monitoring of respiratory status -Close monitoring of vital signs -Advair, Spiriva, ascorbic acid, zinc -CXR unremarkable -noted mild AST elevation-47, ALT-41; improving -blood cx: prelim negative -f/u sputum cx once sample obtained Status: Acute (2) Morbid obesity: -BMI-34 kg/m2 Status: Chronic (3) Hypertension: -VSS; continue to monitor -continue oral antihypertensive Status: Chronic Qualifiers: Hypertension type: essential hypertension Qualified Code(s): I10 - Essential (primary) hypertension (4) CKD (chronic kidney disease) stage 2, GFR 60-89 ml/min: -baseline Cr is 0.9-1.0 Status: Chronic Additional A&P Information -on ASA -hyperglycemia, anticipate more of this with steroid use; Accuchecks, ISS -mild hyponatremia, improving; Na-131->134; gentle IVF hydration -regular diet as tolerated -GI ppx with PPI -DVT ppx with lovenox -Dispo: home -Code status: FULL code Attestations Medical Necessity Statement*: Patient requires hospitalization for continued management of COVID-19 infection, on Remdesevir due to noted hypoxia and need for supplemental oxygen support. Time Spent in Patient Care: Greater than 35 minutes (>than 50% of time spent in counselling and/or direct pt care on unit) . Coding Level of Care Code Acute City Planning Aide for [facility] Fwd Exam Comprehensive Diagnoses COVID-19 virus infection U07.1 Morbid obesity E66.01 Hypertension I10 Hypertension type: essential hypertension CKD (chronic kidney disease) stage 2, GFR 60-89 ml/min N18.2
[2020-05-30] MEDS: aspirin 325 mg Tablet PO (09:33)
[2020-05-30] MEDS: dexamethasone 10 mg/mL INJ 5 MG IVP (09:33)
[2020-05-30] MEDS: cholecalciferol (vitamin D3) 1,000 unit Tablet 1000 UNIT PO (09:33)
[2020-05-30] MEDS: ascorbic acid 500 mg Tablet PO ×2 (09:33→18:43)
[2020-05-30] MEDS: hydroCHLOROthiazide 25 mg Tablet 12.5 MG PO (09:34)
[2020-05-30] MEDS: losartan 50 mg Tablet PO (09:34)
[2020-05-30] MEDS: zinc gluconate 50 mg Tablet PO (09:35)
[2020-05-30] MEDS: pantoprazole DR 40 mg Tablet PO (09:35)
[2020-05-30] MEDS: sodium chloride 0.9% 1,000 ML 75 ML IV ×2 (10:08→22:26)
--- NOTE | 2020-05-30 12:43 | PC.NURSE ---
PATIENT O2 SAT DECREASED TO UNSUSTAINED 88-89 ; DR LARIOS NOTIFIED AND OXYGEN WAS INCREASED FROM 2LPM TO 3LPM
[2020-05-30 12:49] LABS: Glucose Point of Care 137 mg/dL (70-110)
--- NOTE | 2020-05-30 15:13 | PC.NURSE ---
PATIENT BS 178 ; PATIENT STATED SHE WOULD LIKE IT RECHECKED CLOSER TO MEDICATION ADMIN TIME D/T RECENTLY DRINKING APPLE JUICE
[2020-05-30 16:29] LABS: Glucose Point of Care 178 mg/dL (70-110)
[2020-05-30 16:29] LABS: Glucose Point of Care 157 mg/dL (70-110)
[2020-05-30] MEDS: enoxaparin 40 mg/0.4 mL Syringe SUBCUT (18:44)
[2020-05-30 19:27] LABS: Glucose Point of Care 165 mg/dL (70-110)
[2020-05-31] VITALS (22 sets, daily range): BP systolic 101–152; BP diastolic 50–79; PULSE 48–67; RESP 16–22; TEMP 36.3–37.4; O2SAT 91–97
[2020-05-31 05:03] LABS: Hematocrit 40.3 % (37.0-47.0); Hemoglobin 13.2 g/dL (11.5-15.3); Lymphocytes # 0.7 10^3/uL (0.8-4.8); Mean Corpuscular HGB Conc 32.8 g/dL (30.0-36.0); Mean Corpuscular Hemoglobin 31.4 pg (28.0-34.0); Mean Platelet Volume 11.4 fL (7.4-10.4); Monocytes # 0.3 10^3/uL (0.2-0.9); Monocytes % 11.9 %; Neutrophils # 1.19 10^3/uL (1.8-7.7); Neutrophils % 54.6 %; Nucleated Red Blood Cells % 0 %; Platelet Count 163 10^3/cmm (130-400); Red Cell Distribution Width 12.7 % (12.1-15.1); White Blood Count 2.2 10^3/uL (4.0-10.0)
[2020-05-31 05:33] LABS: Alanine Aminotransferase 34 U/L (0-33); Albumin Level 3.6 g/dL (3.5-5.2); Alkaline Phosphatase 50 IU/L (35-105); Anion Gap 13.5 (5-19); Aspartate Amino Transferase 31 U/L (0-32); Blood Urea Nitrogen 13 mg/dL (8-23); C Reactive Protein 14.9 mg/L (0.0-4.9); Carbon Dioxide 24 mmol/L (22-29); Chloride 98 mmol/L (98-107); Globulin 3.9 g/dL (1.3-4.6); Glomerular Filtration Rate 123.8 mL/min (90-130); Glucose 108 mg/dL (65-115); Osmolality Calculated 271 mOsm/kg (285-295); Potassium 3.5 mmol/L (3.5-5.1); Sodium 132 mmol/L (136-145); Total Bilirubin 0.2 mg/dL (0.15-1.2); Total Protein 7.5 g/dL (6.6-8.7)
[2020-05-31 05:34] LABS: Ferritin 639 ng/mL (15-150)
[2020-05-31 05:42] LABS: Lactate Dehydrogenase 158 U/L (135-214)
--- NOTE | 2020-05-31 07:33 | PC.NURSE ---
Provider notified of changes in lab values and the down trend of Sodium and WBC. Patient is drinking fluids ok and voiding with no difficulties. Provider gave new order to discontinue continuous IV fluid.
[2020-05-31] MEDS: ascorbic acid 500 mg Tablet PO ×2 (09:17→18:33)
[2020-05-31] MEDS: aspirin 325 mg Tablet PO (09:18)
[2020-05-31] MEDS: dexamethasone 10 mg/mL INJ 6 MG IVP (09:19)
[2020-05-31] MEDS: cholecalciferol (vitamin D3) 1,000 unit Tablet 1000 UNIT PO (09:19)
[2020-05-31] MEDS: losartan 50 mg Tablet PO (09:26)
[2020-05-31] MEDS: zinc gluconate 50 mg Tablet PO (09:30)
[2020-05-31] MEDS: pantoprazole DR 40 mg Tablet PO (09:30)
[2020-05-31 11:28] LABS: Glucose Point of Care 109 mg/dL (70-110)
--- NOTE | 2020-05-31 14:11 | P.PN_ITS ---
Subjective Subjective: Interval history: Patient awake and sitting up in bed upon entering the room. She reported feeling better this morning with an episode of decreased energy this afternoon. Long discussion with patient about potential exposure, she stated that she is uncertain, no known exposure. Reported that she has been very cautious in public and always wears a mask. She reports that her smell is starting to return, able to taste apple pie at lunch. Reports thick sputum occasionally with cough. She has been using IS regularly since having it delivered today, discussed flutter valve and she was in agreement to trying this. Also discussed with patient sleeping on her stomach as able and she agreed. Vitals/I&O/Wt Last Vital Signs Temp 97.8 F 05/31/20 12:00 Pulse 61 05/31/20 14:00 Resp 20 H 05/31/20 14:00 BP 126/68 05/31/20 14:00 Pulse Ox 92 05/31/20 14:00 05/30/20 05/31/20 05/31/20 22:59 06:59 14:59 Intake Total 1562.5 / 2922.5 760 / 760 Balance 1562.5 / 2922.5 760 / 760 Physical Exam Const: COMMON NORMALS: patient oriented x3 and alert GENERAL APPEARANCE: cooperative ORIENTATION/CONSCIOUSNESS: Yes awake, Yes oriented to person, Yes oriented to place and Yes oriented to time HENMT: COMMON NORMALS: normocephalic and atraumatic HEAD & SCALP: normocephalic and atraumatic Neck/C-Spine: COMMON NORMALS: supple GENERAL: Yes normal visual inspection Resp: COMMON NORMALS: normal respiratory effort and clear to auscultation bila terally EFFORT & INSPECTION: Yes symmetric chest movement and Yes tachypneic AUSCULTATION: clear to auscultation bilaterally, no rhonchi and no wheezes Cardio: COMMON NORMALS: regular rate, regular rhythm and No murmurs present (Cardio) RATE: regular rate RHYTHM: regular rhythm GI: COMMON NORMALS: Soft to palpation and non-tender INSPECTION: No abdominal distension AUSCULTATION: Yes normoactive bowel sounds PALPATION: Yes Soft to palpation Extremity: COMMON NORMALS: no clubbing, cyanosis or edema and no calf tenderness Neuro: COMMON NORMALS: patient oriented x3, CN's II-XII intact bilaterally, moves all extremities and no focal motor deficits SENSORIUM/ORIENTATION: Yes alert, Yes oriented to person, Yes oriented to place and Yes oriented to time SPEECH: speech normal Psych: COMMON NORMALS: mental status grossly normal and cooperative Skin: COMMON NORMALS: no rashes or lesions noted GENERAL SKIN EXAM: no rashes or lesions noted Data : 05/31/20 04:55 05/31/20 04:55 Micro: Microbiology 05/29/20 11:08 Blood Culture - Preliminary Blood NEGATIVE TO DATE 05/29/20 11:00 Blood Culture - Preliminary Blood NEGATIVE TO DATE A&P Assessment and plan (1) COVID-19 virus infection: COVID-19 viral pneumonia Continue Remdesevir, day 3 Continue dexamethasone, increased to 6mg daily Aggressive pulmomary toilet IS and flutter valve ordered today Advair, Spiriva, ascorbic acid, zinc IVF discontinued, as PO intake is adequate Inflammatory markers improving today with improved oxygen requirements from 3-2 L NC Repeat blood work in the morning, hold off on further CXR at this time due to improvement Status: Acute (2) Hypertension: Blood pressure soft this morning HCTZ held due to hyponatremia Contiue home ARB Status: Chronic Qualifiers: Hypertension type: essential hypertension Qualified Code(s): I10 - Essential (primary) hypertension (3) CKD (chronic kidney disease) stage 2, GFR 60-89 ml/min: -baseline Cr is 0.9-1.0 Status: Chronic Additional A&P Information Hyponatremia: appears stable, likely secondary to HCTZ, holding at this time Dehydration resolved, IVF discontinued with good PO intake Leukopenia: secondary to viral infection, recheck in AM Intermittent bradycardia: appears to be while sleeping, asymptomatic, continue telemetry monitoring Dispo: home Diet: Regular GI ppx: PPI DVT ppx: Lovenox Code status: FULL code Attestations Medical Necessity Statement*: Patient requires further hospitalization due to COVID-19 viral pneumonia with hypoxemia Coding Level of Care Code Acute Internal Communications Specialist for [facility] Diagnoses COVID-19 virus infection U07.1 Hypertension I10 Hypertension type: essential hypertension CKD (chronic kidney disease) stage 2, GFR 60-89 ml/min N18.2
[2020-05-31] MEDS: enoxaparin 40 mg/0.4 mL Syringe SUBCUT (18:33)
--- NOTE | 2020-05-31 18:36 | PC.NURSE ---
gave spiriva and advair inhaler this morning at 0900. called [facility] to let them know patient had received medication.
[2020-06-01] VITALS (13 sets, daily range): BP systolic 107–138; BP diastolic 57–84; PULSE 47–67; RESP 12–29; TEMP 36.4–37.1; O2SAT 92–98
[2020-06-01 05:15] LABS: Hematocrit 42.6 % (37.0-47.0); Hemoglobin 13.6 g/dL (11.5-15.3); Lymphocytes # 0.8 10^3/uL (0.8-4.8); Lymphocytes % 29.9 %; Mean Corpuscular HGB Conc 31.9 g/dL (30.0-36.0); Mean Corpuscular Hemoglobin 31.3 pg (28.0-34.0); Mean Corpuscular Volume 98.2 fL (81-99); Mean Platelet Volume 11.6 fL (7.4-10.4); Monocytes # 0.4 10^3/uL (0.2-0.9); Monocytes % 14.9 %; Neutrophils # 1.47 10^3/uL (1.8-7.7); Neutrophils % 54.8 %; Nucleated Red Blood Cells % 0 %; Platelet Count 178 10^3/cmm (130-400); Red Blood Count 4.34 10^6/uL (4.1-5.3); Red Cell Distribution Width 12.7 % (12.1-15.1); White Blood Count 2.7 10^3/uL (4.0-10.0)
[2020-06-01 05:40] LABS: C Reactive Protein 10.2 mg/L (0.0-4.9); D Dimer <= 0.27 ug/mIFEU (0-0.59); Ferritin 660 ng/mL (15-150); Lactate Dehydrogenase 145 U/L (135-214)
[2020-06-01 05:41] LABS: Alanine Aminotransferase 36 U/L (0-33); Albumin Level 3.7 g/dL (3.5-5.2); Alkaline Phosphatase 51 IU/L (35-105); Anion Gap 13.9 (5-19); Aspartate Amino Transferase 26 U/L (0-32); Blood Urea Nitrogen 14 mg/dL (8-23); Calcium 9.4 mg/dL (8.5-10.5); Carbon Dioxide 25 mmol/L (22-29); Chloride 101 mmol/L (98-107); Globulin 4.1 g/dL (1.3-4.6); Glomerular Filtration Rate 100.3 mL/min (90-130); Glucose 100 mg/dL (65-115); Osmolality Calculated 278 mOsm/kg (285-295); Potassium 3.9 mmol/L (3.5-5.1); Sodium 136 mmol/L (136-145); Total Bilirubin 0.2 mg/dL (0.15-1.2); Total Protein 7.8 g/dL (6.6-8.7)
--- NOTE | 2020-06-01 09:01 | PC.NURSE ---
Pt resting in bed. Went to collect breakfast tray, give bathing supplies. Pt said eating makes her very weak, needed to rest for a bit. Pt denies any pain at this time or needs. Call light in reach. Will continue to monitor.
[2020-06-01] MEDS: dexamethasone 10 mg/mL INJ 6 MG IVP (09:15)
[2020-06-01] MEDS: cholecalciferol (vitamin D3) 1,000 unit Tablet 1000 UNIT PO (09:15)
[2020-06-01] MEDS: aspirin 325 mg Tablet PO (09:15)
[2020-06-01] MEDS: losartan 50 mg Tablet PO (09:15)
[2020-06-01] MEDS: ascorbic acid 500 mg Tablet PO ×2 (09:15→18:06)
[2020-06-01] MEDS: zinc gluconate 50 mg Tablet PO (09:15)
[2020-06-01] MEDS: pantoprazole DR 40 mg Tablet PO (09:15)
--- NOTE | 2020-06-01 13:15 | PC.NURSE ---
Patient calm & asleep in bed. Prone position. O2 decreased from 2 L/NC to off. At 5 minutes patient's oxygen saturation was 88-89%. At 10 minutes patient oxygen saturation was still at 88% and patient was back on oxygen at 1 L/NC. Returned O2 flow to 2L/NC and patient's saturation recovered to 92% almost immediately
[2020-06-01] MEDS: enoxaparin 40 mg/0.4 mL Syringe SUBCUT (18:24)
--- NOTE | 2020-06-01 19:23 | PM.PN ---
Subjective Subjective: Interval history: Patient awake in bed at time of exam earlier this afternoon. At time she reported that her fatigue has slightly improved and overall energy level has improved. She denies any chest pain, no abdominal pain, no nausea or vomiting. Reports that she is able to taste even more for food today. Reports continued cough, nonproductive today. Vitals/I&O/Wt Last Vital Signs Temp 98.0 F 06/01/20 18:00 Pulse 58 L 06/01/20 18:00 Resp 24 H 06/01/20 18:00 BP 134/84 06/01/20 18:00 Pulse Ox 94 06/01/20 18:00 06/01/20 06/01/20 06/01/20 06:59 14:59 22:59 Intake Total 1959 440 / 440 480 / 920 Balance 1959 440 / 440 480 / 920 Physical Exam Const: COMMON NORMALS: patient oriented x3 and alert GENERAL APPEARANCE: cooperative ORIENTATION/CONSCIOUSNESS: Yes awake, Yes oriented to person, Yes oriented to place and Yes oriented to time HENMT: COMMON NORMALS: normocephalic and atraumatic HEAD & SCALP: normocephalic and atraumatic Neck/C-Spine: COMMON NORMALS: supple GENERAL: Yes normal visual inspection Resp: COMMON NORMALS: normal respiratory effort and clear to auscultation bilaterally EFFORT & INSPECTION: Yes symmetric chest movement and Yes tachypneic AUSCULTATION: clear to auscultation bilaterally, no rhonchi and no wheezes Cardio: COMMON NORMALS: regular rate, regular rhythm and No murmurs present (Cardio) RATE: regular rate RHYTHM: regular rhythm GI: COMMON NORMALS: Soft to palpation and non-tender INSPECTION: No abdominal distension AUSCULTATION: Yes normoactive bowel sounds PALPATION: Yes Soft to palpation Extremity: COMMON NORMALS: no clubbing, cyanosis or edema and no calf tenderness Neuro: COMMON NORMALS: patient oriented x3, CN's II-XII intact bilaterally, moves all extremities and no focal motor deficits SENSORIUM/ORIENTATION: Yes alert, Yes oriented to person, Yes oriented to place and Yes oriented to time SPEECH: speech normal Psych: COMMON NORMALS: mental status grossly normal and cooperative Skin: COMMON NORMALS: no rashes or lesions noted GENERAL SKIN EXAM: no rashes or lesions noted Data : 06/01/20 04:00 06/01/20 04:00 A&P Assessment and plan (1) COVID-19 virus infection: COVID-19 viral pneumonia Continue Remdesevir, day 4 Hold dexamethasone dose for tomorrow and continue to monitor patient's symptoms Aggressive pulmomary toilet IS and flutter valve ordered today Advair, Spiriva, ascorbic acid, zinc IVF discontinued, as PO intake is adequate Inflammatory markers continue to show improvement Patient on 2 L of oxygen by nasal cannula at time of exam, weaned to 1 L and patient maintained 94% at that time. We will continue to wean to room air as tolerated Hold off on repeat blood work in the morning due to improvement, if any clinical change will repeat chest imaging and blood work Status: Acute (2) Hypertension: Blood pressure soft this morning HCTZ held due to hyponatremia, blood pressure stable, hyponatremia resolved Contiue home ARB Status: Chronic Qualifiers: Hypertension type: essential hypertension Qualified Code(s): I10 - Essential (primary) hypertension (3) CKD (chronic kidney disease) stage 2, GFR 60-89 ml/min: -baseline Cr is 0.9-1.0 Status: Chronic Additional A&P Information Hyponatremia: Resolved after holding hydrochlorothiazide Dehydration resolved Leukopenia: secondary to viral infection Intermittent bradycardia: appears to be while sleeping, asymptomatic, continue telemetry monitoring Dispo: home Diet: Regular GI ppx: PPI DVT ppx: Lovenox Code status: FULL code Attestations Medical Necessity Statement*: Patient requires continued hospitalization due to COVID-19 viral pneumonia Coding Level of Care Code Acute 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
[2020-06-02] VITALS (10 sets, daily range): BP systolic 102–138; BP diastolic 39–87; PULSE 48–61; RESP 14–21; TEMP 36.4–37.1; O2SAT 88–98
--- NOTE | 2020-06-02 08:20 | PC.SOCIAL ---
IMM Page 2 of [facility] explained to patient over the phone. Initialed, dated, and timed and given to CRYS Thomas in [facility] to place in patient's chart in addition to a copy to give to the patient.
[2020-06-02] MEDS: aspirin 325 mg Tablet PO (08:50)
[2020-06-02] MEDS: cholecalciferol (vitamin D3) 1,000 unit Tablet 1000 UNIT PO (08:50)
[2020-06-02] MEDS: ascorbic acid 500 mg Tablet PO (08:50)
[2020-06-02] MEDS: pantoprazole DR 40 mg Tablet PO (08:50)
[2020-06-02] MEDS: zinc gluconate 50 mg Tablet PO (08:50)
[2020-06-02] MEDS: losartan 50 mg Tablet PO (08:50)
--- NOTE | 2020-06-02 08:51 | PC.NURSE ---
Advair and Spiriva given per order.
--- NOTE | 2020-06-02 10:31 | PC.RESP ---
Patient's mar needed updating, see notes by nursing.
--- NOTE | 2020-06-02 10:44 | PC.NURSE ---
pt up and walking throughout room and unit, on RA at this time. O2 sat dropped to 88% RA, pt would then stop and take a couple deep breaths, instantly her o2 sat would rise to 92-93%. Lungs clear upon auscultation, pt midly short of breath. no acute distress noted. pt resting in bed at this time, no complaints.
--- NOTE | 2020-06-02 15:13 | P.DS_ITS ---
Discharge Providers Date of Admission: 05/30/20 09:17 Date of Discharge: June 02, 2020 Attending Provider at Admission: Melania Vasquez MD Attending Provider at Discharge: Sharona Sanderson DO Primary Care Provider: Michael Alston MD Diagnoses at Discharge Discharge Diagnosis (1) COVID-19 virus infection: Status: Acute (2) Hypertension: Status: Chronic Qualifiers: Hypertension type: essential hypertension Qualified Code(s): I10 - Essential (primary) hypertension (3) CKD (chronic kidney disease) stage 2, GFR 60-89 ml/min: Status: Chronic Reason for Visit Reason for Visit: SOB/COVID POSITIVE Hospital Course Hospital Course: Patient was seen and evaluated in the ED and admitted to the hospital for further evaluation and treatment due to COVID-19 viral pneumonia. Patient was noted to be hypoxic with initial saturations in the mid 80s on room air. She was started on oxygen by NC and at maximum required 3L by NC. She continued to have improvement with treatment of remdesivir and dexamethasone and oxygen was gradually weaned. On date of discharge she was weaned off of oxygen while at rest and vital signs remained stable. She had improvement of symptoms including smell and taste. Patient had home oxygen evaluation performed which showed that patient required 2L by NC with activity. Discussed with patient plan for discharge to home with oxygen and close follow up with PCP and she verbalized understanding and agreed with plan. Patient had hyponatremia while hospitalized and HCTZ was held. BP remained stable with this change. Physical Exam Const: COMMON NORMALS: patient oriented x3 and alert GENERAL APPEARANCE: cooperative ORIENTATION/CONSCIOUSNESS: Yes awake, Yes oriented to person, Yes oriented to place and Yes oriented to time HENMT: COMMON NORMALS: normocephalic and atraumatic HEAD & SCALP: normocephalic and atraumatic Neck/C-Spine: COMMON NORMALS: supple GENERAL: Yes normal visual inspection Resp: COMMON NORMALS: normal respiratory effort and clear to auscultation bilaterally EFFORT & INSPECTION: Yes symmetric chest movement and Yes tachypneic AUSCULTATION: clear to auscultation bilaterally, no rhonchi and no wheezes Cardio: COMMON NORMALS: regular rate, regular rhythm and No murmurs present (Cardio) RATE: regular rate RHYTHM: regular rhythm GI: COMMON NORMALS: Soft to palpation and non-tender INSPECTION: No abdominal distension AUSCULTATION: Yes normoactive bowel sounds PALPATION: Yes Soft to palpation Extremity: COMMON NORMALS: no clubbing, cyanosis or edema and no calf tenderness Neuro: COMMON NORMALS: patient oriented x3, CN's II-XII intact bilaterally, moves all extremities and no focal motor deficits SENSORIUM/ORIENTATION: Yes alert, Yes oriented to person, Yes oriented to place and Yes oriented to time SPEECH: speech normal Psych: COMMON NORMALS: mental status grossly normal and cooperative Skin: COMMON NORMALS: no rashes or lesions noted GENERAL SKIN EXAM: no rashes or lesions noted Discharge Data Data Completed and Pending: Completed Studies During Hospitalization Category Date Time Status XR chest 1V norma ble [id number] Stat Exams 05/29/20 10:19 Completed Pending at discharge Category Date Time Status Blood Culture Sta t Lab 05/29/20 11:08 Results Sputum Culture an d Gram Stain Stat Lab 05/29/20 10:19 Uncollected Vitals: Last Vital Signs Temp 97.9 F 06/02/20 11:48 Pulse 55 L 06/02/20 11:48 Resp 21 H 06/02/20 11:48 BP 114/81 06/02/20 11:48 Pulse Ox 95 06/02/20 14:00 Discharge Plan Discharge Patient Disposition: Home Condition: Stable Prescriptions: New Advair Diskus 250-50 mcg/dose Blister With Device 1 puff inhalation BID.RESPIRATORY 30 Days Qty: 1 RF: 0 Vitamin C 500 mg Tablet 500 mg PO BID 30 Days Qty: 60 RF: 0 irbesartan 150 mg tablet 150 mg PO DAILY 30 Days Qty: 30 RF: 0 Continued aspirin 325 mg Tablet 325 mg PO DAILY RF: 0 albuterol sulfate 90 mcg/actuation HFA aerosol inhaler 1 puff INHALATION Q6H PRN (Reason: Shortness Of Breath) RF: 0 Vitamin D3 25 mcg (1,000 unit) Tablet 25 mcg PO DAILY RF: 0 Discontinued irbesartan-hydrochlorothiazide 150-12.5 mg tablet 1 tab PO DAILY RF: 0 prednisone 20 mg tablet 20 mg PO DAILY RF: 0 Breo Ellipta 100-25 mcg/dose Blister With Device 1 inh INHALATION DAILY RF: 0 Discharge Orders: Discharge Order (Routine); Ordered 06/02/20 Ordered By: Sharona Sanderson Other Ambulatory Orders: DME: Oxygen (Order) Location: None Selected Ordered By: Sharona Sanderson Referrals: Michael Alston MD [Primary Care Provider] - 1-3 days Discharge Diet: Advance as tolerated Discharge Activity: Increase activity as tolerated and Oxygen as instructed Patient Instructions: Ascorbic Acid (Vitamin C) (By mouth), Irbesartan (By mouth), Viral Pneumonia (DC), Using Oxygen at Home Activity Restrictions/Additional Instructions: Continue on Advair inhaler as prescribed, Breo inhaler can be discontinued when using this. Albuterol inhaler as needed for shortness of breath. Increase activity as tolerated, listen to our body and do not push too hard too quickly. Monitor oxygen saturations at home and with any increase in shortness of breath, drop in oxygen levels or chest pain call your physician or present to the ED. Goal oxygen saturation >90-92%. Continue with oxygen by NC, 2L with activity or as needed. Continue with home quarantine at this time. Per CDC guidelines with severe in fection would recommend home quarantine for at least 20 days from initial onset of symptoms with improvement of symptoms and no fever for at least 48hrs without the use of fever reducing medications. HCTZ was stopped due to hyponatremia, low sodium. Please follow up with Dr. Alston and determine if future adjustments to blood pressure medications need to be arranged. Pres[place]artan [place] [facility] [place] For any acute illness or concer please call your physician or present to the ED Please call if you have any questions about your discharge paperwork. Thank you for allowing us to participate in your care. Discharge Attestations Time Spent in Discharge Care*: greater than 30 min Specific Discharge Activities: Specific discharge activities: educating patient, discussing with pcp/other providers and documenting/other paperwork Quality Metrics Clinical Quality Measures During this hospital stay, did patient experience: None Coding Level of Care Code Acute Primary School Teacher for [facility] Fwd Diagnoses COVID-19 virus infection U07.1 Hypertension I10 Hypertension type: essential hypertension CKD (chronic kidney disease) stage 2, GFR 60-89 ml/min N18.2
== END 2020-06-02 16:51 | disposition home or self-care (01) | DRG 177 ==
LOC: ER 10:47 → ICU 15:42
PROVIDERS: Admitting Provider Family Medicine; Emergency Provider Family Medicine; PCP Family Medicine; Visit Provider Family Medicine
DX: U07.1 COVID-19 (principal); J12.89 Other viral pneumonia; E87.1 Hypo-osmolality and hyponatremia; N18.2 Chronic kidney disease, stage 2 (mild); I12.9 Hypertensive chronic kidney disease with stage 1 through stage 4 chronic kidney disease, or unspecified chronic kidney disease; R09.02 Hypoxemia; Z79.82 Long term (current) use of aspirin; E86.0 Dehydration; R00.1 Bradycardia, unspecified; E66.01 Morbid (severe) obesity due to excess calories; Z68.34 Body mass index [BMI] 34.0-34.9, adult; R73.9 Hyperglycemia, unspecified
CPT/HCPCS: 12345; 36415; 36416; 71045; 80053; 82728; 82962; 83605; 83615; 84145; 85025; 85378; 85384; 86140; 87040; 87426; 93005; 96372; 96375; 99282; G0378; J1100; J1650; J1815; J7030

== ENCOUNTER 2021-11-18 07:26 | Outpatient (CLI) | payer MEDICARE, SELFPAY ==
--- NOTE | 2021-11-18 07:42 | MM_ITS ---
WS: [id number] BILATERAL DIGITAL SCREENING MAMMOGRAPHY WITH CAD CLINICAL INFORMATION: SCREENING HISTORY: Screening mammogram. No current complaints. COMPARISON: 018 TECHNIQUE: Bilateral CC and MLO views. FINDINGS: Scattered fibroglandular densities bilaterally. Stable punctate calcifications. Stable clustered calc ifications LEFT breast. No suspicious focal mass, asymmetry, calcifications, or architectural distort ion. No evidence of malignancy. MM/[place] [id number] IMPRESSION: BI-RADS: 2-Benign FOLLOW UP: 1 Year Follow-up Recommend return to annual screening mammography.
== END 2021-11-18 07:27 | disposition home or self-care (01) ==
PROVIDERS: PCP Family Medicine; Visit Provider Family Medicine
DX: Z12.31 Encounter for screening mammogram for malignant neoplasm of breast (principal)
CPT/HCPCS: 77067

== ENCOUNTER 2025-06-11 09:30 | Outpatient (CLI) | payer MEDICARE, OTHER, SELFPAY ==
--- NOTE | 2025-06-11 | MM_ITS ---
WS: [id number] BILATERAL SCREENING DIGITAL TOMOSYNTHESIS MAMMOGRAM WITH CAD HISTORY: ANNUAL SCREENING COMPARISON: 11/18/2021, 01/29/2018 Bilateral CC and MLO views with tomosynthesis and synthetic mammography submitted. Computer aided detection analyzed. Breast composition: There are scattered areas of fibroglandular density. No suspicious masses, microcalcifications or architectural distortion. Benign calcifications in each breast. Intramammary lymph nodes in the axillary tails of each breast. MM/MM scr tomosynthesis [id number] IMPRESSION: BI-RADS: 2 - Benign. FOLLOW UP: 1 Year Follow-up
== END 2025-06-11 09:31 | disposition home or self-care (01) ==
LOC: RAD 09:31
PROVIDERS: PCP Family Medicine; Visit Provider Family Medicine
DX: Z12.31 Encounter for screening mammogram for malignant neoplasm of breast (principal); R92.323 Mammographic fibroglandular density, bilateral breasts; R59.0 Localized enlarged lymph nodes
CPT/HCPCS: 77063; 77067

== ENCOUNTER 2025-06-12 16:32 | Oncology outpatient (recurring) (ONCR) | payer MEDICARE, OTHER, SELFPAY ==
--- NOTE | 2025-06-12 16:44 | PM.CONSULT ---
Providers/Reason For Consult Consulting Physician/Specialty*: Mehreen Alfred, FULL TIME- Reason for Consult*: hypercalcemia Requesting Physician: Michael Alston MD Attending Physician: Mehreen Alfred Primary Care Provider: Michael Alston MD History of Present Illness History of Present Illness Jennifer Warner is a 69 year old female with hypercalcemia from suspected myeloma (yet to be confirmed). I spoke with Dr Alston regarding treating the hypercalcemia.I arrived in surgical services and discussed treatment and potential side effects with Ms Warner. Dexamethasone IVP and Zofran IVP were ordered for premeds, Zometa 4 mg IV was ordered to be administered to the patient. She is accompanied by her and they are aware to present to the ER if they have any concerns of reactions/side effects. She will take dexamethasone 4 mg po daily as directed by Dr Alston. She will be seen in oncology on June 18 as scheduled. Medications/Allergies Home Medications ?Medication ?Instructions ?Recorded ?Confirmed ?Last Taken ?Type albuterol sulfate 90 mcg/actuation 1 puff inhalation Q6H PRN 05/29/20 05/29/20 05/29/20 History aerosol inhaler Shortness Of Breath aspirin 325 mg tablet 325 mg PO DAILY 05/29/20 05/29/20 05/29/20 History cholecalciferol (vitamin D3) 25 25 mcg PO DAILY 05/29/20 05/29/20 05/29/20 History mcg (1,000 unit) tablet (Vitamin D3) Allergies Allergy/AdvReac Type Severity Reaction Status Date / Time No Known Allergies Allergy Verified 05/29/20 10:30 PFSH Acute PFSH: Medical History (Updated 06/03/20 @ 00:00 by NICKO Valdez) CKD (chronic kidney disease) stage 2, GFR 60-89 ml/min Hypertension Surgical History History of cholecystectomy Family History Other CAD (coronary artery disease) Denies family history of Cancer Social History (Updated 05/29/20 @ 16:15 by Melania Vasquez MD) Smoking and tobacco/nicotine status: never used tobacco/nicotine Alcohol intake: never Substance/Drug Use: never Household members: spouse Marital status: 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
[2025-06-12 17:05] VITALS: BP 147/72; PULSE 66; RESP 16; TEMP 36.6; O2SAT 98
[2025-06-12] MEDS: ondansetron 2 mg/ML SDV 2 mL 8 MG IVP (17:37)
[2025-06-12] MEDS: zoledronic acid 4 MG in sodium chloride 0.9% (100 ml) 100 ML 420 MG IV (17:55)
[2025-06-12 18:40] VITALS: BP 130/69; PULSE 58; RESP 14; TEMP 36.8; O2SAT 97
--- NOTE | 2025-06-12 18:46 | PC.NURSE ---
18:40 IV PUSH MEDS GIVEN AND IV INFUSION GIVEN VIA IV PUMP. PT TOLERATED PROCEDURE WELL.
== END 2025-06-15 08:11 | disposition home or self-care (01) ==
LOC: OPS 16:51 → ONCMED 06-16 07:48
PROVIDERS: PCP Family Medicine; Visit Provider Nurse Practitioner
DX: C79.51 Secondary malignant neoplasm of bone (principal); E83.52 Hypercalcemia
CPT/HCPCS: 96365; J1100; J2405

== ENCOUNTER 2025-06-17 08:21 | Outpatient (CLI) | payer MEDICARE, OTHER, SELFPAY ==
--- NOTE | 2025-06-17 08:25 | CTR_ITS ---
PROCEDURE INFORMATION: Exam: CT Cervical Spine Without Contrast Exam date and time: 06/17/2025 9:24 AM Age: 69 years old Clinical indication: Radicular pain (radiculopathy); Cervical region; Pathological FX of ribs with routine healing, C/O of scapula pain bilaterally, nothing in rib area. Had lumbar FX with no known injury. ? HX of multiple myeloma; Additional info: Cervical thoracic spine pain/cervical radiculopathy TECHNIQUE: Imaging protocol: Computed tomography of the cervical spine without contrast. Radiation optimization: All CT scans at this facility use at least one of these dose optimization techniques: automated exposure control; mA and/or kV adjustment per patient size (includes targeted exams where dose is matched to clinical indication); or iterative reconstruction. COMPARISON: CR XR ribs RT mn 3V w CXR1V [id number] 06/03/2025 3:37 PM RADIATION DOSE METRICS: Total DLP (mGy-cm): 156.07 FINDINGS: Bones: No acute fracture. Moderate osteopenia. Osteolytic changes in the trabecular bone of the left transverse process of C3, image 42 series 3. See also image 19 series 7. Another area of subtle destructive trabecular bone changes noted in the anterior aspect of the left lateral mass of C2, image 19 series 7. Degenerative changes in the facet joints are responsible for cystic subchondral changes in the facets. Normal alignment. No significant disc bulge or herniation. No severe spinal canal stenosis. No significant neural foraminal narrowing. Lungs: Lung apices are normal. Soft tissues: Unremarkable. CT/CT cervical spin wo con* [id number] IMPRESSION: 1. No acute cervical spine fracture. 2. There are a few small foci of apparent osteolysis similar to those seen in the thoracic spine and again suspicious for multiple myel pretty focal pinky there may umair.
--- NOTE | 2025-06-17 08:25 | CTR_ITS ---
PROCEDURE INFORMATION: Exam: CT Thoracic Spine Without Contrast Exam date and time: 06/17/2025 9:27 AM Age: 69 years old Clinical indication: Pain in thoracic spine; With radiculopathy; Pathological FX of ribs with routine healing, C/O of scapula pain bilaterally, nothing in rib area. Had lumbar FX with no known injury. ? HX of multiple myeloma; Additional info: Thoracic spine pain/thoracic radiculopathy TECHNIQUE: Imaging protocol: Computed tomography of the thoracic spine without contrast. Radiation optimization: All CT scans at this facility use at least one of these dose optimization techniques: automated exposure control; mA and/or kV adjustment per patient size (includes targeted exams where dose is matched to clinical indication); or iterative reconstruction. COMPARISON: CT cervical spin wo con* [id number] 06/17/2025 9:24 AM RADIATION DOSE METRICS: Total DLP (mGy-cm): 710.11 FINDINGS: Bones/joints: No acute or chronic fractures. [id number]-[id number] osteopenia. There is a focal osteolytic lesion in the posterosuperior right paramedian T12 that has eroded cortical bone and trabecular bone within the vertebral body. Image 132 series 4, image 34 series 8. Another area of subtle osteolysis of the trabecular bone in anterior T4 is observed in addition to scattered small rounded somewhat lucent areas in other vertebral bodies. Normal alignment. No significant disc bulge or herniation. No severe spinal canal stenosis. No significant neural foraminal narrowing. Soft tissues: Unremarkable. CT/CT thoracic spin wo con* [id number] IMPRESSION: 1. No acute thoracic spine fracture. 2. Permeative pattern of changes in the vertebral bodies is highly suspicious for multiple myeloma.
--- NOTE | 2025-06-17 08:39 | CTR_ITS ---
PROCEDURE INFORMATION: Exam: CT Chest With Contrast; Diagnostic Exam date and time: 06/17/2025 9:31 AM Age: 69 years old Clinical indication: Chest wall pain; Pathological FX of ribs with routine healing, C/O of scapula pain bilaterally, nothing in rib area. Had lumbar FX with no known injury. ? HX of multiple myeloma; Additional info: Pathological FX of rib w/routine healing TECHNIQUE: Imaging protocol: Diagnostic computed tomography of the chest with contrast. Radiation optimization: All CT scans at this facility use at least one of these dose optimization techniques: automated exposure control; mA and/or kV adjustment per patient size (includes targeted exams where dose is matched to clinical indication); or iterative reconstruction. Contrast material: OMNI 350; Contrast volume: 100 ml; Contrast route: INTRAVENOUS (IV); COMPARISON: CR XR ribs RT mn 3V w CXR1V [id number] 06/03/2025 3:37 PM RADIATION DOSE METRICS: Total DLP (mGy-cm): 577.19 FINDINGS: Lungs: Unremarkable. No consolidation. No masses. Pleural spaces: Unremarkable. No pneumothorax. No pleural effusion. Heart: Unremarkable. No cardiomegaly. No pericardial effusion. Lymph nodes: Unremarkable. No enlarged lymph nodes. Vasculature: Unremarkable. No aortic aneurysm. Liver: There are multiple geographic low-density nonenhancing liver lesions consistent with cysts scattered throughout the liver. Gallbladder and biliary ducts: Post cholecystectomy. Post cholecystectomy. Bones/joints: There is a healing fracture of the posterolateral right 7th rib. This was present on previous radiographs from 05/2025. No new rib fractures. Note that a lytic lesion in the posterior T12 vertebral body is much better seen on CT thoracic spine images that have been reported separately. No significant abnormalities observed in appendicular skeleton included on the exam. Soft tissues: Unremarkable. CT/CT chest w con* [id number] IMPRESSION: 1. No acute findings. 2. Healing fracture right 7th rib
[2025-06-17] MEDS: iohexol 350 mg/mL 500 mL Btl (per mL) IV (09:38)
== END 2025-06-17 08:22 | disposition home or self-care (01) ==
LOC: RAD 08:21
PROVIDERS: PCP Family Medicine; Visit Provider Surgery
DX: S22.31XD Fracture of one rib, right side, subsequent encounter for fracture with routine healing (principal); X58.XXXD Exposure to other specified factors, subsequent encounter; K76.89 Other specified diseases of liver; Z90.49 Acquired absence of other specified parts of digestive tract
CPT/HCPCS: 71260; 72125; 72128

== ENCOUNTER 2025-06-18 08:02 | Oncology outpatient (recurring) (ONCR) | payer MEDICARE, OTHER, SELFPAY ==
[2025-06-18 09:24] LABS: Hematocrit 33.2 % (36-47); Hemoglobin 10.70 g/dL (11.27-16.99); Mean Corpuscular HGB Conc 32.2 g/dL (30-55); Mean Corpuscular Hemoglobin 30.1 pg (27-33); Mean Corpuscular Volume 93.3 fl (85-98); Nucleated Red Blood Cells % 0 %; Platelet Count 212 10^3/cmm (157-399); Red Blood Count 3.56 10^6/uL (3.85-5.65); White Blood Count 6.91 10^3/uL (3.29-11.43)
[2025-06-18 09:48] LABS: Alanine Aminotransferase 22 U/L (0-33); Albumin Level 3.1 g/dL (3.5-5.2); Alkaline Phosphatase 64 U/L (35-105); Anion Gap 11.9 (5-19); Aspartate Amino Transferase 17 U/L (0-32); Blood Urea Nitrogen 14 mg/dL (8-23); Calcium 9.6 mg/dL (8.5-10.5); Carbon Dioxide 25 mmol/L (22-29); Chloride 95 mmol/L (98-107); Creatinine Clr Calc Pharmacy 82.8992; Globulin 6.5 g/dL (1.3-4.6); Glucose 113 mg/dL (65-115); Osmolality Calculated 267 mOsm/kg (285-295); Potassium 3.9 mmol/L (3.5-5.1); Sodium 128 mmol/L (136-145); Total Protein 9.6 g/dL (6.6-8.7); Uric Acid 4.7 mg/dL (2.4-5.7)
[2025-06-18 10:12] LABS: Ferritin 359 ng/mL (15-150); Iron 30 ug/dL (37-145); Total Iron Binding Capacity 217 mcg/dl; Unsaturated Iron Binding 187 ug/dL (112-347)
[2025-06-18 10:28] LABS: Vitamin B12 257 pg/mL (232-1245)
[2025-06-19 09:05] LABS: PROTEIN, TOTAL 9.2 g/dL (6.1-8.1)
[2025-06-22 16:15] LABS: KAPPA LIGHT CHAIN, FREE, SERUM 147.4 mg/L (3.3-19.4); KAPPA/LAMBDA LIGHT CHAINS FREE 56.69 (0.26-1.65); LAMBDA LIGHT CHAIN, FREE, SERU 2.6 mg/L (5.7-26.3)
[2025-06-23 08:50] LABS: ALPHA 1 GLOBULIN 0.4 g/dL (0.2-0.3); ALPHA 2 GLOBULIN 0.9 g/dL (0.5-0.9); BETA 1 GLOBULIN 0.4 g/dL (0.4-0.6); BETA 2 GLOBULIN 0.3 g/dL (0.2-0.5)
== END 2025-06-18 23:59 | disposition home or self-care (01) ==
PROVIDERS: Internal Medicine; PCP Family Medicine; Visit Provider Nurse Practitioner
DX: C90.00 Multiple myeloma not having achieved remission (principal); N18.2 Chronic kidney disease, stage 2 (mild); E83.52 Hypercalcemia; D64.9 Anemia, unspecified; R77.1 Abnormality of globulin; M84.48XA Pathological fracture, other site, initial encounter for fracture; R19.5 Other fecal abnormalities; E66.9 Obesity, unspecified; Z68.35 Body mass index [BMI] 35.0-35.9, adult
CPT/HCPCS: 36415; 80053; 82232; 82607; 82728; 82746; 82784; 83540; 83550; 83615; 83883; 84100; 84155; 84165; 84550; 85025; 86334; 99204

== ENCOUNTER → 2025-06-19 09:02 | Outpatient (BNVA) | payer MEDICARE, OTHER, SELFPAY | PROVIDERS: PCP Family Medicine; Visit Provider Student in an Organized Health Care Education/Training Program | DX: C90.00 Multiple myeloma not having achieved remission (principal); R19.5 Other fecal abnormalities | CPT/HCPCS: 99204 ==

== ENCOUNTER 2025-06-23 10:58 | Day surgery (SDC) | payer MEDICARE, OTHER, SELFPAY ==
[2025-06-23 11:12] VITALS: BMI 34.7
[2025-06-23 11:19] VITALS: BP 167/86; PULSE 70; RESP 17; TEMP 36.6; O2SAT 99
--- NOTE | 2025-06-23 11:47 | ANES.PREANE2 ---
Pre-Anesthetic Assessment Height/Weight: Height 1.73 m Weight 103.419 kg Temp Pulse Resp BP Pulse Ox O2 Del Method 97.9 F 70 17 167/86 99 Room Air 06/23/25 11:19 06/23/25 11:19 06/23/25 11:19 06/23/25 11:19 06/23/25 11:19 06/23/25 11:19 Operation Date: 06/23/25 12:15 Proposed Procedures p EGD EGD with Biopsy [id number] G0105 C90.00 R19.5(Not Applicable) - Kayden Michel MD s Colonoscopy(Not Applicable) - Kayden Michel MD Familial anesthetic complications: PONV and difficulty waking up Was Beta Madina taken within 24 hours: N/A Was Clonidine taken within 24 hours: N/A Last intake: Intake Last Liquid Date 06/22/25 Last Liquid Time 20:00 Last Solid Date 06/21/25 Last Solid Time 18:00 Social No alcohol and No tobacco Exam alert and oriented x 3 Airway Submandibular: within normal limits Cervical ROM: within normal limits Mallampati: Class II Dentition: full History/ROS No significant history except as noted Pulmonary Asthma (dust pollens) CV/HEM Hypertension None reported Hepatic None reported GI None reported Metabolic None reported Musc/skel multiple myeloma new diagnosis Neuropsych None reported Anesthetic Plan ASA status: 3 Anesthesia: MAC Risk of > 500 ml blood loss (7ml/kg in children): No Medications/Allergies Home Medications ?Medication ?Instructions ?Recorded ?Confirmed ?Last Taken ?Type albuterol sulfate 90 mcg/actuation 1 puff inhalation Q6H PRN 05/29/20 06/19/25 05/06/25 History aerosol inhaler Shortness Of Breath irbesartan 150 1 tab PO DAILY 06/12/25 06/19/25 06/19/25 History mg-hydrochlorothiazide 12.5 mg tablet cetirizine 10 mg tablet 10 mg PO DAILY 06/19/25 06/19/25 06/19/25 History Allergies Allergy/AdvReac Type Severity Reaction Status Date / Time No Known Allergies Allergy Verified 06/19/25 12:36 Current Medications Generic Name Dose Route Start Last Admin Trade Name Freq PRN Reason Stop Dose Admin Sodium Chloride 1,000 mls @ 15 mls/hr 06/23/25 11:00 06/23/25 11:20 Sodium Chloride 0.9% IV 06/24/25 10:59 15 mls/hr .Q24H PRN Administration COLONOSCOPY FLUIDS PFSH Anesthesia Medical History CKD (chronic kidney disease) stage 2, GFR 60-89 ml/min Hypertension Surgical History History of cholecystectomy Family History Other CAD (coronary artery disease) Denies family history of Cancer Social History Smoking and tobacco/nicotine status: never used tobacco/nicotine Alcohol intake: never Substance/Drug Use: never Household members: spouse Marital status: 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
--- NOTE | 2025-06-23 11:49 | W.PM.OPSUD ---
Surgery/Procedure H&P Update DATE OF PROCEDURE: June 23, 2025 DATE H&P PERFORMED: 07/09/25 H&P UPDATE INFORMATION: I have reviewed H&P completed within last 30 days, I have examined patient prior to procedure and No changes to prior documentation PLANNED PROCEDURE: Operation Date: 06/23/25 12:15 Proposed Procedures p EGD EGD with Biopsy [id number] G0105 C90.00 R19.5(Not Applicable) - Kayden Michel MD s Colonoscopy(Not Applicable) - Kayden Michel MD
[2025-06-23 12:25] VITALS: BP 106/66; PULSE 58; RESP 16; TEMP 36.3; O2SAT 96
[2025-06-23 12:42] VITALS: BP 117/63; PULSE 53; RESP 18; O2SAT 98
--- NOTE | 2025-06-23 13:00 | ANE.PACU2 ---
Inpatient post-anesthesia follow up: Airway intact: Yes Vital signs: Temperature 97.3 F Pulse Rate 53 Respiratory Rate 18 Blood Pressure 117/63 Pulse Oximetry 98 Oxygen Delivery Me thod Room Air Oxygen Flow Rate Fraction of Inspir ed Oxygen Hydration adequate: Yes Nausea and vomiting: No Pain level: 1 Mental status: Baseline
== END 2025-06-23 13:00 | disposition home or self-care (01) ==
PROVIDERS: PCP Family Medicine; Visit Provider Student in an Organized Health Care Education/Training Program
PROC: 0DJ08ZZ Inspection of Upper Intestinal Tract, Via Natural or Artificial Opening Endoscopic (ICD-10-PCS; principal; 2025-06-23 12:15)
PROC: 0DJD8ZZ Inspection of Lower Intestinal Tract, Via Natural or Artificial Opening Endoscopic (ICD-10-PCS; CPT 45378; 2025-06-23 12:15)
DX: C90.00 Multiple myeloma not having achieved remission (principal); R19.5 Other fecal abnormalities; K57.30 Diverticulosis of large intestine without perforation or abscess without bleeding; K64.4 Residual hemorrhoidal skin tags; K29.50 Unspecified chronic gastritis without bleeding; I12.9 Hypertensive chronic kidney disease with stage 1 through stage 4 chronic kidney disease, or unspecified chronic kidney disease; N18.2 Chronic kidney disease, stage 2 (mild)
CPT/HCPCS: 43239; 45378; 88305; 88342; J7030

== ENCOUNTER 2025-07-14 09:45 | Oncology outpatient (recurring) (ONCR) | payer MEDICARE, OTHER, SELFPAY ==
[2025-06-23 17:04] LABS: Protein/Creatinine Ratio 0.083 (<0.150); Protein/Creatinine Ratio 83 mg/g creat (<150)
--- NOTE | 2025-06-24 13:44 | XR_ITS ---
WS: [id number] SCREENING DEXA SCAN [facility] CLINICAL INFORMATION: PATHOLOGICAL FRACTURE OF VERTEBRA WITH ROUTINE HEALING COMPARISON: None. FINDINGS: The L1-L4 bone mineral density measures 1.113 g/cm2. This corresponds to a T score score of -0.6 and Z score of 0.0. Left femoral neck bone mineral density measures 0.945 g/cm2. This corresponds to a T score of -0.5 and Z score of 0.2. Right femoral neck bone mineral density measures 0.925 g/cm2. This corresponds to a T score -0.7of and Z score of 0.0. Mean femoral neck bone mineral density measures 0.935 g/cm2. This corresponds to a T score of -0.6 and Z score of 0.1. XR/XR DEXA axial skeleton* [id number] IMPRESSION: Normal bone mineralization. Patient's FRAX calculated 10 year probability for major osteoporotic fracture i s 14.1% and osteoporotic hip fracture is 1.7%.
[2025-06-26 08:49] LABS: ALPHA-1-GLOBULINS 0 %; ALPHA-2-GLOBULINS 0 %; BETA GLOBULINS 0 %; GAMMA GLOBULINS 0 %
--- NOTE | 2025-06-26 14:00 | PETR_ITS ---
PROCEDURE INFORMATION: Exam: PET/CT Whole Body Exam date and time: 06/26/2025 2:52 PM Age: 69 years old Clinical indication: Condition or disease; Primary cancer: Multiple myeloma LABS AND CLINICAL REPORTS: Glucose: 92 mg/dl Treatment strategy for malignancy (PET staging): Initial Staging (PI) TECHNIQUE: Imaging protocol: Following at least four-hour fasting and following the injection of radiopharmaceutical, low dose CT images were obtained. Then, PET images were obtained. Attenuation corrected images were constructed using the CT scan. Fused images of PET and CT were reviewed. The standardized uptake values (SUV) reported below are maximum values within a region of interest, expressed in gm/ml. Exam includes the whole body. SUV normalization method: BodyWeight Radiopharmaceutical: 11.31 mCi F-18 FDG (Fluorodeoxyglucose), IV. Time of imaging post radiopharmaceutical administration: 55 minutes Injection site: right hand COMPARISON: 1. CT thoracic spin wo con* [id number] 06/17/2025 9:[address] chest w con* [id number] 06/17/2025 9:31 AM FINDINGS: Brain: Visualized brain has normal physiologic uptake. Pharynx: Symmetric palatine tonsillar uptake without underlying CT abnormality. Larynx: No abnormal uptake. Lungs, pleura and trachea: No abnormal uptake. Subsegmental atelectasis versus scarring at the lower lungs. Heart: Normal physiologic uptake. Mediastinal space: No abnormal uptake. Liver: No abnormal uptake. Couple hepatic cysts redemonstrated. Gallbladder and biliary ducts: No abnormal uptake. Prior cholecystectomy. Pancreas: No abnormal uptake. Spleen: No abnormal uptake. Adrenal glands: No abnormal uptake. Kidneys and ureters: Normal physiologic uptake. Photopenic left renal cysts. Stomach and bowel: No abnormal uptake. Colonic diverticulosis without findings of diverticulitis. Vasculature: No abnormal uptake. Mild systemic atherosclerotic calcification without aortic aneurysm. Lymph nodes: Right level 2 cervical lymph node measures 7 mm in the short axis on axial image 529 and shows SUV max 4.8. Skeleton: Focal FDG uptake at proximal right humeral shaft shows SUV max 4.6 on axial image [address] abnormality. Focal FDG uptake posterior to the right acetabulum showing SUV max 4.3 on axial image [address] abnormality. Multiple small bilateral non FDG avid calvarial lucent lesions. FDG uptake at subacute to chronic appearing posterolateral right 7th rib without underlying lytic or blastic lesion. Multiple chronic left rib fracture deformities with focal FDG uptake at chronic anterolateral left 5th rib fracture deformity without underlying lytic or blastic lesion. FDG uptake at mild superior L1 vertebral body compression deformity without underlying lytic or blastic lesion. Ryow-wm-roggnuhj chronic superior compression deformity of the L3 vertebral body without abnormal uptake. Right shoulder periarticular uptake is likely inflammatory. FDG uptake at thickened distal left Achilles tendon likely representing tendinitis and/or enthesitis. Low-level uptake just lateral to the left greater trochanter without underlying CT abnormality is likely inflammatory. Degenerative changes along the axial skeletal system and both knees. Soft tissues: No abnormal uptake in the visualized head, neck, chest, abdomen, pelvis, and extremities. METRICS: Mediastinal blood pool: SUV mean 2.4 Liver uptake: SUV mean 3.0 PET/PET WB melanoma INITIAL [id number] IMPRESSION: 1. Focal FDG uptake at the proximal right humeral shaft and posterior to the right acetabulum without definite underlying CT abnormality may represent myelomatous lesions. 2. Multiple small bilateral non FDG avid calvarial lucent lesions may also represent myelomatous lesions. 3. Focal FDG uptake at nonacute right 7th and left 5th rib fracture deformities without underlying lytic or blastic lesion favored to be posttraumatic. 4. FDG uptake at mild superior L1 vertebral body compression deformity without underlying lytic or blastic lesion is also favored to be posttraumatic. 5. Symmetric palatine tonsillar uptake without underlying CT abnormality is likely benign physiologic or inflammatory. 6. Mild asymmetrically prominent FDG avid right level 2 cervical lymph node is nonspecific but favored reactive. 7. Additional chronic and incidental findings as above, to include colonic diverticulosis, chronic ruul-uk-ulugucvk superior compression deformity of the L3 vertebral body, and distal left Achilles tendonitis and/or enthesitis.
[2025-07-14 10:05] LABS: Hematocrit 31.3 % (36-47); Hemoglobin 10.20 g/dL (11.27-16.99); Mean Corpuscular HGB Conc 32.6 g/dL (30-55); Mean Corpuscular Hemoglobin 29.8 pg (27-33); Mean Corpuscular Volume 91.5 fl (85-98); Nucleated Red Blood Cells % 0.2 %; Platelet Count 302 10^3/cmm (157-399); Red Blood Count 3.42 10^6/uL (3.85-5.65); White Blood Count 8.65 10^3/uL (3.29-11.43)
[2025-07-14 10:35] LABS: Alanine Aminotransferase 29 U/L (0-33); Albumin Level 3.1 g/dL (3.5-5.2); Alkaline Phosphatase 40 U/L (35-105); Anion Gap 16.1 (5-19); Aspartate Amino Transferase 18 U/L (0-32); Blood Urea Nitrogen 26 mg/dL (8-23); Calcium 10.6 mg/dL (8.5-10.5); Carbon Dioxide 24 mmol/L (22-29); Chloride 97 mmol/L (98-107); Creatinine Clr Calc Pharmacy 83.1451; Globulin 6.6 g/dL (1.3-4.6); Glucose 140 mg/dL (65-115); Osmolality Calculated 283 mOsm/kg (285-295); Potassium 4.1 mmol/L (3.5-5.1); Sodium 133 mmol/L (136-145); Total Protein 9.7 g/dL (6.6-8.7)
[2025-07-15 05:19] LABS: PROTEIN, TOTAL 9.2 g/dL (6.1-8.1)
[2025-07-15 11:29] LABS: KAPPA LIGHT CHAIN, FREE, SERUM 129.5 mg/L (3.3-19.4); KAPPA/LAMBDA LIGHT CHAINS FREE 80.94 (0.26-1.65); LAMBDA LIGHT CHAIN, FREE, SERU 1.6 mg/L (5.7-26.3)
[2025-07-16 09:25] LABS: ALPHA 1 GLOBULIN 0.3 g/dL (0.2-0.3); ALPHA 2 GLOBULIN 0.9 g/dL (0.5-0.9); BETA 1 GLOBULIN 0.4 g/dL (0.4-0.6); BETA 2 GLOBULIN 0.3 g/dL (0.2-0.5)
== END 2025-07-14 23:59 | disposition home or self-care (01) ==
PROVIDERS: Internal Medicine; Absent Provider Family Medicine; PCP Family Medicine; Visit Provider Internal Medicine Medical Oncology
DX: C90.00 Multiple myeloma not having achieved remission; Z79.899 Other long term (current) drug therapy; Z79.52 Long term (current) use of systemic steroids; Z53.9 Procedure and treatment not carried out, unspecified reason
CPT/HCPCS: 36415; 77080; 78816; 80053; 82570; 82784; 83883; 84155; 84165; 84166; 85025; 86334; 86335; 99213; 99215; A9552; J2704

== ENCOUNTER 2025-07-15 08:01 | Oncology outpatient (recurring) (ONCR) | payer MEDICARE, OTHER, SELFPAY ==
[2025-07-15] MEDS: denosumab-bbdz 120 mg SDV (Inpatient and Infusion Clinic Use) SUBCUT (09:38)
[2025-07-15] MEDS: bortezomib 3.5 mg SDV 2.8 MG SUBCUT (10:08)
[2025-07-15] MEDS: daratumumab-hyaluronidase-fihj 1,800 mg/15 mL SDV 1800 MG SUBCUT (10:10)
[2025-07-15 10:29] VITALS: BP 110/74; PULSE 82; RESP 18; TEMP 36.6; O2SAT 98
== END 2025-07-15 23:59 | disposition home or self-care (01) ==
PROVIDERS: Absent Provider Family Medicine; PCP Family Medicine; Visit Provider Internal Medicine Medical Oncology
DX: Z51.12 Encounter for antineoplastic immunotherapy (principal); C90.00 Multiple myeloma not having achieved remission; E83.52 Hypercalcemia; D64.9 Anemia, unspecified; R53.83 Other fatigue; Z79.52 Long term (current) use of systemic steroids; Z79.899 Other long term (current) drug therapy
CPT/HCPCS: 96372; 96401; 96402; 99215; J9041; J9144; J9999; Q0162; Q5136

== ENCOUNTER 2025-07-22 09:07 | Oncology outpatient (recurring) (ONCR) | payer MEDICARE, OTHER, SELFPAY ==
[2025-07-22 09:39] LABS: Hematocrit 32.9 % (36-47); Hemoglobin 10.60 g/dL (11.27-16.99); Mean Corpuscular HGB Conc 32.2 g/dL (30-55); Mean Corpuscular Hemoglobin 30.1 pg (27-33); Mean Corpuscular Volume 93.5 fl (85-98); Nucleated Red Blood Cells % 0 %; Platelet Count 240 10^3/cmm (157-399); Red Blood Count 3.52 10^6/uL (3.85-5.65); White Blood Count 7.30 10^3/uL (3.29-11.43)
[2025-07-22 10:04] LABS: Alanine Aminotransferase 14 U/L (0-33); Albumin Level 3.2 g/dL (3.5-5.2); Alkaline Phosphatase 50 U/L (35-105); Anion Gap 14.7 (5-19); Aspartate Amino Transferase 11 U/L (0-32); Blood Urea Nitrogen 18 mg/dL (8-23); Calcium 9.3 mg/dL (8.5-10.5); Carbon Dioxide 26 mmol/L (22-29); Chloride 97 mmol/L (98-107); Creatinine Clr Calc Pharmacy 81.9621; Globulin 4.6 g/dL (1.3-4.6); Glucose 107 mg/dL (65-115); Osmolality Calculated 278 mOsm/kg (285-295); Potassium 4.7 mmol/L (3.5-5.1); Sodium 133 mmol/L (136-145); Thyroid Stimulating Hormone 1.26 uIU/mL (0.27-4.20); Total Protein 7.8 g/dL (6.6-8.7)
[2025-07-22] MEDS: daratumumab-hyaluronidase-fihj 1,800 mg/15 mL SDV 1800 MG SUBCUT (11:21)
[2025-07-22] MEDS: bortezomib 3.5 mg SDV 2.8 MG SUBCUT (11:21)
== END 2025-07-22 23:59 | disposition home or self-care (01) ==
PROVIDERS: Nurse Practitioner; Absent Provider Family Medicine; PCP Family Medicine; Visit Provider Internal Medicine Medical Oncology
DX: Z51.11 Encounter for antineoplastic chemotherapy (principal); C90.00 Multiple myeloma not having achieved remission; Z79.899 Other long term (current) drug therapy; Z79.52 Long term (current) use of systemic steroids
CPT/HCPCS: 80053; 84443; 85025; 96377; 96401; 99214; J9041; J9144; J9999; Q0162

== ENCOUNTER 2025-07-29 09:53 | Oncology outpatient (recurring) (ONCR) | payer MEDICARE, OTHER, SELFPAY ==
[2025-07-29 10:10] LABS: Hematocrit 33.0 % (36-47); Hemoglobin 10.60 g/dL (11.27-16.99); Mean Corpuscular HGB Conc 32.1 g/dL (30-55); Mean Corpuscular Hemoglobin 29.7 pg (27-33); Mean Corpuscular Volume 92.4 fl (85-98); Nucleated Red Blood Cells % 0 %; Platelet Count 195 10^3/cmm (157-399); Red Blood Count 3.57 10^6/uL (3.85-5.65); White Blood Count 4.12 10^3/uL (3.29-11.43)
[2025-07-29 10:38] LABS: Alanine Aminotransferase 17 U/L (0-33); Albumin Level 3.0 g/dL (3.5-5.2); Alkaline Phosphatase 75 U/L (35-105); Anion Gap 13.5 (5-19); Aspartate Amino Transferase 10 U/L (0-32); Blood Urea Nitrogen 15 mg/dL (8-23); Calcium 8.7 mg/dL (8.5-10.5); Carbon Dioxide 26 mmol/L (22-29); Chloride 98 mmol/L (98-107); Creatinine Clr Calc Pharmacy 82.8992; Globulin 3.4 g/dL (1.3-4.6); Glucose 133 mg/dL (65-115); Osmolality Calculated 281 mOsm/kg (285-295); Potassium 3.5 mmol/L (3.5-5.1); Sodium 134 mmol/L (136-145); Thyroid Stimulating Hormone 1.46 uIU/mL (0.27-4.20); Total Protein 6.4 g/dL (6.6-8.7)
[2025-07-29] MEDS: daratumumab-hyaluronidase-fihj 1,800 mg/15 mL SDV 1800 MG SUBCUT (11:27)
[2025-07-29] MEDS: bortezomib 3.5 mg SDV 2.8 MG SUBCUT (12:13)
[2025-07-29 12:22] VITALS: BP 111/74; PULSE 77; RESP 18; TEMP 36.9; O2SAT 95
== END 2025-07-29 23:59 | disposition home or self-care (01) ==
PROVIDERS: Nurse Practitioner; Absent Provider Family Medicine; PCP Family Medicine; Visit Provider Internal Medicine Medical Oncology
DX: Z51.11 Encounter for antineoplastic chemotherapy (principal); Z51.12 Encounter for antineoplastic immunotherapy; C90.00 Multiple myeloma not having achieved remission; E83.52 Hypercalcemia; Z79.899 Other long term (current) drug therapy; Z79.52 Long term (current) use of systemic steroids
CPT/HCPCS: 36415; 80053; 84443; 85025; 96401; 99213; J9041; J9144; J9999; Q0162

== ENCOUNTER 2025-08-04 12:10 | Outpatient (CLI) | payer MEDICARE, OTHER, SELFPAY ==
[2025-08-05 11:54] LABS: Protein/Creatinine Ratio 0.083 (<0.150); Protein/Creatinine Ratio 83 mg/g creat (<150)
== END 2025-08-04 12:11 | disposition home or self-care (01) ==
LOC: LAB 12:14
PROVIDERS: PCP Family Medicine; Visit Provider Internal Medicine
DX: C90.00 Multiple myeloma not having achieved remission (principal)
CPT/HCPCS: 82570; 84166; 86335

== ENCOUNTER 2025-08-05 11:26 | Oncology outpatient (recurring) (ONCR) | payer MEDICARE, OTHER, SELFPAY ==
[2025-08-05 11:49] LABS: Hematocrit 33.0 % (36-47); Hemoglobin 10.50 g/dL (11.27-16.99); Mean Corpuscular HGB Conc 31.8 g/dL (30-55); Mean Corpuscular Hemoglobin 29.5 pg (27-33); Mean Corpuscular Volume 92.7 fl (85-98); Nucleated Red Blood Cells % 0 %; Platelet Count 306 10^3/cmm (157-399); Red Blood Count 3.56 10^6/uL (3.85-5.65); White Blood Count 3.16 10^3/uL (3.29-11.43)
[2025-08-05 12:10] LABS: Alanine Aminotransferase 17 U/L (0-33); Albumin Level 3.2 g/dL (3.5-5.2); Alkaline Phosphatase 93 U/L (35-105); Anion Gap 14.1 (5-19); Aspartate Amino Transferase 13 U/L (0-32); Blood Urea Nitrogen 12 mg/dL (8-23); Calcium 9.1 mg/dL (8.5-10.5); Carbon Dioxide 28 mmol/L (22-29); Chloride 99 mmol/L (98-107); Ferritin 696 ng/mL (15-150); Globulin 3.3 g/dL (1.3-4.6); Glucose 74 mg/dL (65-115); Iron 33 ug/dL (37-145); Osmolality Calculated 282 mOsm/kg (285-295); Potassium 4.1 mmol/L (3.5-5.1); Sodium 137 mmol/L (136-145); Total Iron Binding Capacity 252 mcg/dl; Total Protein 6.5 g/dL (6.6-8.7); Unsaturated Iron Binding 219 ug/dL (112-347)
[2025-08-05] MEDS: bortezomib 3.5 mg SDV 2.8 MG SUBCUT (14:42)
[2025-08-05] MEDS: daratumumab-hyaluronidase-fihj 1,800 mg/15 mL SDV 1800 MG SUBCUT (14:43)
[2025-08-05 14:45] VITALS: BP 114/58; PULSE 16; RESP 90; TEMP 36.6; O2SAT 98
[2025-08-06 05:45] LABS: PROTEIN, TOTAL 5.9 g/dL (6.1-8.1)
[2025-08-06 11:44] LABS: KAPPA LIGHT CHAIN, FREE, SERUM 9.0 mg/L (3.3-19.4); KAPPA/LAMBDA LIGHT CHAINS FREE 1.34 (0.26-1.65); LAMBDA LIGHT CHAIN, FREE, SERU 6.7 mg/L (5.7-26.3)
[2025-08-07 10:40] LABS: ALPHA 1 GLOBULIN 0.4 g/dL (0.2-0.3); ALPHA 2 GLOBULIN 1.0 g/dL (0.5-0.9); BETA 1 GLOBULIN 0.4 g/dL (0.4-0.6); BETA 2 GLOBULIN 0.3 g/dL (0.2-0.5)
== END 2025-08-05 23:59 | disposition home or self-care (01) ==
PROVIDERS: Internal Medicine; Nurse Practitioner; Absent Provider Family Medicine; PCP Family Medicine; Visit Provider Internal Medicine Medical Oncology
DX: Z51.11 Encounter for antineoplastic chemotherapy (principal); Z51.12 Encounter for antineoplastic immunotherapy; C90.00 Multiple myeloma not having achieved remission; Z79.899 Other long term (current) drug therapy
CPT/HCPCS: 36415; 80053; 82728; 82784; 83540; 83550; 83615; 83883; 84155; 84165; 85025; 86334; 96402; J9041; J9144; J9999; Q0162

== ENCOUNTER 2025-08-12 09:12 | Oncology outpatient (recurring) (ONCR) | payer MEDICARE, OTHER, SELFPAY ==
[2025-08-12 09:44] LABS: Hematocrit 33.8 % (36-47); Hemoglobin 10.70 g/dL (11.27-16.99); Mean Corpuscular HGB Conc 31.7 g/dL (30-55); Mean Corpuscular Hemoglobin 29.5 pg (27-33); Mean Corpuscular Volume 93.1 fl (85-98); Nucleated Red Blood Cells % 0 %; Platelet Count 200 10^3/cmm (157-399); Red Blood Count 3.63 10^6/uL (3.85-5.65); White Blood Count 4.35 10^3/uL (3.29-11.43)
[2025-08-12 09:58] LABS: Alanine Aminotransferase 20 U/L (0-33); Albumin Level 3.4 g/dL (3.5-5.2); Alkaline Phosphatase 97 U/L (35-105); Anion Gap 17.4 (5-19); Aspartate Amino Transferase 14 U/L (0-32); Blood Urea Nitrogen 12 mg/dL (8-23); Calcium 9.5 mg/dL (8.5-10.5); Carbon Dioxide 25 mmol/L (22-29); Chloride 96 mmol/L (98-107); Creatinine Clr Calc Pharmacy 82.8992; Globulin 3.0 g/dL (1.3-4.6); Glucose 82 mg/dL (65-115); Osmolality Calculated 277 mOsm/kg (285-295); Potassium 4.4 mmol/L (3.5-5.1); Sodium 134 mmol/L (136-145); Total Protein 6.4 g/dL (6.6-8.7)
[2025-08-12] MEDS: daratumumab-hyaluronidase-fihj 1,800 mg/15 mL SDV 1800 MG SUBCUT (11:24)
[2025-08-12] MEDS: bortezomib 3.5 mg SDV 2.8 MG SUBCUT (11:25)
[2025-08-12 11:45] VITALS: BP 89/56; PULSE 106; RESP 16
[2025-08-12 12:01] VITALS: BP 96/68; PULSE 100; RESP 16; TEMP 36.6; O2SAT 98
--- NOTE | 2025-08-12 12:02 | PC.NURSE ---
MD aware of Low BP PT instructed to discontinue home BP med. Patient stated understanding and encouraged PO fluids.
== END 2025-08-12 23:59 | disposition home or self-care (01) ==
LOC: ONCMED 09:13
PROVIDERS: Nurse Practitioner; Absent Provider Family Medicine; PCP Family Medicine; Visit Provider Internal Medicine Medical Oncology
DX: Z51.12 Encounter for antineoplastic immunotherapy (principal); C90.00 Multiple myeloma not having achieved remission; C79.51 Secondary malignant neoplasm of bone; Z79.899 Other long term (current) drug therapy; Z79.52 Long term (current) use of systemic steroids; I95.9 Hypotension, unspecified; I50.9 Heart failure, unspecified
CPT/HCPCS: 36415; 80053; 85025; 96372; 96402; 99213; J9041; J9144; J9999; Q0162

== ENCOUNTER → 2025-08-13 10:15 | Outpatient (BNVA) | payer MEDICARE, OTHER, SELFPAY | PROVIDERS: PCP Family Medicine; Visit Provider Student in an Organized Health Care Education/Training Program | DX: Z09 Encounter for follow-up examination after completed treatment for conditions other than malignant neoplasm (principal) | CPT/HCPCS: 99213 ==

== ENCOUNTER 2025-08-19 07:34 | Oncology outpatient (recurring) (ONCR) | payer MEDICARE, OTHER, SELFPAY ==
[2025-08-19 08:05] LABS: Hematocrit 30.7 % (36-47); Hemoglobin 9.90 g/dL (11.27-16.99); Mean Corpuscular HGB Conc 32.2 g/dL (30-55); Mean Corpuscular Hemoglobin 28.9 pg (27-33); Mean Corpuscular Volume 89.8 fl (85-98); Nucleated Red Blood Cells % 0 %; Platelet Count 145 10^3/cmm (157-399); Red Blood Count 3.42 10^6/uL (3.85-5.65); White Blood Count 3.71 10^3/uL (3.29-11.43)
[2025-08-19 08:23] LABS: Alanine Aminotransferase 20 U/L (0-33); Albumin Level 3.0 g/dL (3.5-5.2); Alkaline Phosphatase 73 U/L (35-105); Anion Gap 15.8 (5-19); Aspartate Amino Transferase 17 U/L (0-32); Blood Urea Nitrogen 9 mg/dL (8-23); Calcium 8.4 mg/dL (8.5-10.5); Carbon Dioxide 21 mmol/L (22-29); Chloride 103 mmol/L (98-107); Globulin 2.9 g/dL (1.3-4.6); Glucose 125 mg/dL (65-115); Osmolality Calculated 282 mOsm/kg (285-295); Potassium 3.8 mmol/L (3.5-5.1); Sodium 136 mmol/L (136-145); Total Protein 5.9 g/dL (6.6-8.7)
[2025-08-19] MEDS: bortezomib 3.5 mg SDV 2.8 MG SUBCUT (10:37)
[2025-08-19] MEDS: daratumumab-hyaluronidase-fihj 1,800 mg/15 mL SDV 1800 MG SUBCUT (10:37)
[2025-08-19 10:40] VITALS: BP 142/68; PULSE 78; RESP 17; TEMP 36.4; O2SAT 98
== END 2025-08-19 23:59 | disposition home or self-care (01) ==
PROVIDERS: Nurse Practitioner; Absent Provider Family Medicine; PCP Family Medicine; Visit Provider Internal Medicine Medical Oncology
DX: Z51.12 Encounter for antineoplastic immunotherapy (principal); C90.00 Multiple myeloma not having achieved remission; Z79.899 Other long term (current) drug therapy; Z79.52 Long term (current) use of systemic steroids; I95.9 Hypotension, unspecified; D64.9 Anemia, unspecified
CPT/HCPCS: 36415; 80053; 85025; 96401; 96402; 99215; J9041; J9144; J9999; Q0162

== ENCOUNTER 2025-08-27 09:36 | Oncology outpatient (recurring) (ONCR) | payer MEDICARE, OTHER, SELFPAY ==
--- NOTE | 2025-08-26 15:45 | USCV_ITS ---
Jennifer Warner Age: 70 Gender: F : 1955 Exam Date: 08/26/2025 15:35 Ordering Phys: Ana Sesay APRN Technologist: YE Exam Location: [facility] [place]_ Indication: right leg swelling pain HISTORY: Lower extremity swelling_RIGHT PROCEDURES: Venous duplex imaging was performed in only the right lower extremity. The following venous structures were evaluated: common femoral vein, profunda vein, proximal portion of the greater saphenous vein, superficial femoral vein, and the popliteal vein. In addition, the posterior tibial and peroneal trunk were evaluated. FINDINGS: There is a non occlusive thrombus in the right SSV, (PT directed area). Normal 2-D Doppler and augmentation and compressibility throughout the lower extremity venous structures. Additional imaging through the proximal calf veins also reveals no thrombus. Limited evaluation of the greater saphenous vein is patent with no thrombus. CONCLUSIONS Acute nonocclusive thrombus small saphenous vein. Dr. Gianna Ontiveros DO (Electronically Signed) Final Date: 26 August 2025 16:03 S
[2025-08-26 16:48] LABS: Hematocrit 31.3 % (36-47); Hemoglobin 10.00 g/dL (11.27-16.99); Mean Corpuscular HGB Conc 31.9 g/dL (30-55); Mean Corpuscular Hemoglobin 29.5 pg (27-33); Mean Corpuscular Volume 92.3 fl (85-98); Nucleated Red Blood Cells % 0 %; Platelet Count 199 10^3/cmm (157-399); Red Blood Count 3.39 10^6/uL (3.85-5.65); White Blood Count 3.61 10^3/uL (3.29-11.43)
[2025-08-26 17:26] LABS: Alanine Aminotransferase 18 U/L (0-33); Albumin Level 3.5 g/dL (3.5-5.2); Alkaline Phosphatase 69 U/L (35-105); Anion Gap 14.0 (5-19); Aspartate Amino Transferase 13 U/L (0-32); Blood Urea Nitrogen 15 mg/dL (8-23); Calcium 8.9 mg/dL (8.5-10.5); Carbon Dioxide 26 mmol/L (22-29); Chloride 101 mmol/L (98-107); Creatinine Clr Calc Pharmacy 82.8232; Globulin 2.7 g/dL (1.3-4.6); Glucose 98 mg/dL (65-115); Osmolality Calculated 285 mOsm/kg (285-295); Potassium 4.0 mmol/L (3.5-5.1); Sodium 137 mmol/L (136-145); Total Protein 6.2 g/dL (6.6-8.7)
[2025-08-26 17:40] LABS: Vitamin B12 583 pg/mL (232-1245)
[2025-08-27 08:05] LABS: PROTEIN, TOTAL 5.9 g/dL (6.1-8.1)
[2025-08-27 10:30] VITALS: BP 123/86; PULSE 89; TEMP 37; O2SAT 93
[2025-08-27] MEDS: bortezomib 3.5 mg SDV 2.9 MG SUBCUT (11:12)
[2025-08-27] MEDS: daratumumab-hyaluronidase-fihj 1,800 mg/15 mL SDV 1800 MG SUBCUT (11:13)
[2025-08-27 11:15] VITALS: BP 115/64; PULSE 78; RESP 177; TEMP 36.3; O2SAT 98
[2025-08-27 14:01] LABS: KAPPA LIGHT CHAIN, FREE, SERUM 5.7 mg/L (3.3-19.4); KAPPA/LAMBDA LIGHT CHAINS FREE 1.63 (0.26-1.65); LAMBDA LIGHT CHAIN, FREE, SERU 3.5 mg/L (5.7-26.3)
[2025-08-27 19:35] LABS: ALPHA 1 GLOBULIN 0.5 g/dL (0.2-0.3); ALPHA 2 GLOBULIN 0.9 g/dL (0.5-0.9); BETA 1 GLOBULIN 0.4 g/dL (0.4-0.6); BETA 2 GLOBULIN 0.4 g/dL (0.2-0.5)
== END 2025-08-27 23:59 | disposition home or self-care (01) ==
PROVIDERS: Nurse Practitioner; Absent Provider Family Medicine; PCP Family Medicine; Visit Provider Internal Medicine Medical Oncology
DX: Z53.9 Procedure and treatment not carried out, unspecified reason; Z51.11 Encounter for antineoplastic chemotherapy; Z51.12 Encounter for antineoplastic immunotherapy; C90.00 Multiple myeloma not having achieved remission; Z79.899 Other long term (current) drug therapy
CPT/HCPCS: 36415; 80053; 82607; 82784; 83090; 83883; 83921; 84155; 84165; 85025; 93971; 96372; 96402; 99213; J9041; J9144; J9999; Q0162

== ENCOUNTER 2025-09-02 13:30 | Oncology outpatient (recurring) (ONCR) | payer MEDICARE, OTHER, SELFPAY ==
--- NOTE | 2025-09-01 13:40 | USCV_ITS ---
Jennifer Warner Age: 70 Gender: F : 1955 Exam Date: 09/01/2025 13:57 Ordering Phys: Jesusita Harry MD Technologist: Exam Location: [facility] [place] Indication: SVT VISUALIZED IN THE RIGHT SSV from prior imaging HISTORY: Patient has history of SSV in the RIGHT SSV PROCEDURES: Venous duplex imaging was performed in only the right lower extremity. The following venous structures were evaluated: common femoral vein, profunda vein, proximal portion of the greater saphenous vein, superficial femoral vein, and the popliteal vein. In addition, the posterior tibial and peroneal trunk were evaluated. and RIGHT SSV FINDINGS: There appears to be non occlusive thrombus in the RIGHT SSV starting just below the knee and ending at mid calf- NO DVT-does not appear different from last week CONCLUSIONS Stable non-occlusive superficial thrombus in the RIGHT SSV extending from mid calf to just below the knee. No change since 08/26/25 No DVT No new findings Matthew Jacobs MD (Electronically Signed) Final Date: 01 September 2025 16:02 S
[2025-09-02 13:43] LABS: Hematocrit 32.2 % (36-47); Hemoglobin 10.00 g/dL (11.27-16.99); Mean Corpuscular HGB Conc 31.1 g/dL (30-55); Mean Corpuscular Hemoglobin 28.9 pg (27-33); Mean Corpuscular Volume 93.1 fl (85-98); Nucleated Red Blood Cells % 0.5 %; Platelet Count 233 10^3/cmm (157-399); Red Blood Count 3.46 10^6/uL (3.85-5.65); White Blood Count 3.66 10^3/uL (3.29-11.43)
[2025-09-02 14:23] LABS: Alanine Aminotransferase 17 U/L (0-33); Albumin Level 3.5 g/dL (3.5-5.2); Alkaline Phosphatase 64 U/L (35-105); Anion Gap 12.9 (5-19); Aspartate Amino Transferase 13 U/L (0-32); Blood Urea Nitrogen 11 mg/dL (8-23); Calcium 8.5 mg/dL (8.5-10.5); Carbon Dioxide 26 mmol/L (22-29); Chloride 103 mmol/L (98-107); Globulin 2.7 g/dL (1.3-4.6); Glucose 90 mg/dL (65-115); Osmolality Calculated 285 mOsm/kg (285-295); Potassium 3.9 mmol/L (3.5-5.1); Sodium 138 mmol/L (136-145); Total Protein 6.2 g/dL (6.6-8.7)
[2025-09-02] MEDS: bortezomib 3.5 mg SDV 2.9 MG SUBCUT (15:47)
[2025-09-02] MEDS: daratumumab-hyaluronidase-fihj 1,800 mg/15 mL SDV 1800 MG SUBCUT (15:49)
[2025-09-02] MEDS: denosumab-bbdz 120 mg SDV (Inpatient and Infusion Clinic Use) SUBCUT (16:16)
== END 2025-09-02 23:59 | disposition home or self-care (01) ==
PROVIDERS: Internal Medicine; Absent Provider Family Medicine; PCP Family Medicine; Visit Provider Internal Medicine Medical Oncology
DX: Z53.9 Procedure and treatment not carried out, unspecified reason; Z51.12 Encounter for antineoplastic immunotherapy; C90.00 Multiple myeloma not having achieved remission; C79.51 Secondary malignant neoplasm of bone; D50.9 Iron deficiency anemia, unspecified; Z79.899 Other long term (current) drug therapy; Z79.52 Long term (current) use of systemic steroids; I82.811 Embolism and thrombosis of superficial veins of right lower extremity; Z79.82 Long term (current) use of aspirin; I95.9 Hypotension, unspecified
CPT/HCPCS: 36415; 80053; 85025; 93971; 96372; 96401; 96402; 99214; J9041; J9144; J9999; Q0162; Q5136

== ENCOUNTER 2025-09-09 12:21 | Oncology outpatient (recurring) (ONCR) | payer MEDICARE, OTHER, SELFPAY ==
[2025-09-09 12:39] LABS: Hematocrit 31.8 % (36-47); Hemoglobin 10.00 g/dL (11.27-16.99); Mean Corpuscular HGB Conc 31.4 g/dL (30-55); Mean Corpuscular Hemoglobin 29.1 pg (27-33); Mean Corpuscular Volume 92.4 fl (85-98); Nucleated Red Blood Cells % 0 %; Platelet Count 188 10^3/cmm (157-399); Red Blood Count 3.44 10^6/uL (3.85-5.65); White Blood Count 5.87 10^3/uL (3.29-11.43)
[2025-09-09 12:59] LABS: Alanine Aminotransferase 14 U/L (0-33); Albumin Level 3.6 g/dL (3.5-5.2); Alkaline Phosphatase 57 U/L (35-105); Anion Gap 13.4 (5-19); Aspartate Amino Transferase 9 U/L (0-32); Blood Urea Nitrogen 8 mg/dL (8-23); Calcium 8.5 mg/dL (8.5-10.5); Carbon Dioxide 27 mmol/L (22-29); Chloride 100 mmol/L (98-107); Globulin 2.2 g/dL (1.3-4.6); Glucose 109 mg/dL (65-115); Osmolality Calculated 283 mOsm/kg (285-295); Potassium 3.4 mmol/L (3.5-5.1); Sodium 137 mmol/L (136-145); Total Protein 5.8 g/dL (6.6-8.7)
[2025-09-09] MEDS: daratumumab-hyaluronidase-fihj 1,800 mg/15 mL SDV 1800 MG SUBCUT (14:41)
[2025-09-09] MEDS: bortezomib 3.5 mg SDV 2.9 MG SUBCUT (14:42)
[2025-09-09 14:58] VITALS: BP 111/69; PULSE 88; RESP 16; TEMP 36.6; O2SAT 97
== END 2025-09-13 23:59 | disposition home or self-care (01) ==
LOC: ONCMED 12:21
PROVIDERS: Internal Medicine; Absent Provider Family Medicine; PCP Family Medicine; Visit Provider Internal Medicine Medical Oncology
DX: Z51.12 Encounter for antineoplastic immunotherapy (principal); C90.00 Multiple myeloma not having achieved remission; Z79.52 Long term (current) use of systemic steroids; I95.9 Hypotension, unspecified; I82.811 Embolism and thrombosis of superficial veins of right lower extremity; D50.9 Iron deficiency anemia, unspecified
CPT/HCPCS: 36415; 80053; 85025; 96401; 99215; J9041; J9144; J9999; Q0162

== ENCOUNTER 2025-09-16 13:27 | Oncology outpatient (recurring) (ONCR) | payer MEDICARE, OTHER, SELFPAY ==
[2025-09-16 13:55] LABS: Hematocrit 34.3 % (36-47); Hemoglobin 10.70 g/dL (11.27-16.99); Mean Corpuscular HGB Conc 31.2 g/dL (30-55); Mean Corpuscular Hemoglobin 28.8 pg (27-33); Mean Corpuscular Volume 92.5 fl (85-98); Nucleated Red Blood Cells % 0 %; Platelet Count 206 10^3/cmm (157-399); Red Blood Count 3.71 10^6/uL (3.85-5.65); White Blood Count 5.46 10^3/uL (3.29-11.43)
[2025-09-16 14:15] LABS: Alanine Aminotransferase 11 U/L (0-33); Albumin Level 3.6 g/dL (3.5-5.2); Alkaline Phosphatase 59 U/L (35-105); Anion Gap 14.0 (5-19); Aspartate Amino Transferase 10 U/L (0-32); Blood Urea Nitrogen 14 mg/dL (8-23); Calcium 9.4 mg/dL (8.5-10.5); Carbon Dioxide 28 mmol/L (22-29); Chloride 102 mmol/L (98-107); Globulin 2.6 g/dL (1.3-4.6); Glucose 98 mg/dL (65-115); Osmolality Calculated 290 mOsm/kg (285-295); Potassium 4.0 mmol/L (3.5-5.1); Sodium 140 mmol/L (136-145); Total Protein 6.2 g/dL (6.6-8.7); Uric Acid 3.9 mg/dL (2.4-5.7)
[2025-09-16] MEDS: daratumumab-hyaluronidase-fihj 1,800 mg/15 mL SDV 1800 MG SUBCUT (15:44)
[2025-09-16] MEDS: bortezomib 3.5 mg SDV 2.8 MG SUBCUT (15:45)
[2025-09-17 06:54] LABS: PROTEIN, TOTAL 5.7 g/dL (6.1-8.1)
[2025-09-17 12:10] LABS: KAPPA LIGHT CHAIN, FREE, SERUM 2.4 mg/L (3.3-19.4); KAPPA/LAMBDA LIGHT CHAINS FREE 1.60 (0.26-1.65); LAMBDA LIGHT CHAIN, FREE, SERU 1.5 mg/L (5.7-26.3)
[2025-09-17 22:04] LABS: ALPHA 1 GLOBULIN 0.4 g/dL (0.2-0.3); ALPHA 2 GLOBULIN 0.8 g/dL (0.5-0.9); BETA 1 GLOBULIN 0.4 g/dL (0.4-0.6); BETA 2 GLOBULIN 0.4 g/dL (0.2-0.5)
== END 2025-09-16 23:59 | disposition home or self-care (01) ==
PROVIDERS: Absent Provider Family Medicine; PCP Family Medicine; Visit Provider Internal Medicine
DX: Z51.11 Encounter for antineoplastic chemotherapy (principal); Z51.12 Encounter for antineoplastic immunotherapy; C90.00 Multiple myeloma not having achieved remission; M89.8X8 Other specified disorders of bone, other site; I82.811 Embolism and thrombosis of superficial veins of right lower extremity; I95.9 Hypotension, unspecified; D50.9 Iron deficiency anemia, unspecified; Z79.899 Other long term (current) drug therapy; Z79.52 Long term (current) use of systemic steroids; Z79.82 Long term (current) use of aspirin
CPT/HCPCS: 36415; 80053; 83615; 83883; 84155; 84165; 84550; 85025; 86334; 96401; 99213; J9041; J9144; J9999; Q0162

== ENCOUNTER 2025-09-21 11:00 | Outpatient (CLI) | payer MEDICARE, OTHER, SELFPAY ==
[2025-09-22 06:44] LABS: Protein/Creatinine Ratio 0.077 (<0.150); Protein/Creatinine Ratio 77 mg/g creat (<150)
== END 2025-09-21 11:01 | disposition home or self-care (01) ==
LOC: LAB 11:00
PROVIDERS: PCP Family Medicine; Visit Provider Internal Medicine
DX: C90.00 Multiple myeloma not having achieved remission (principal)
CPT/HCPCS: 82570; 84166; 86335

== ENCOUNTER 2025-09-23 13:02 | Oncology outpatient (recurring) (ONCR) | payer MEDICARE, OTHER, SELFPAY ==
--- NOTE | 2025-09-18 15:14 | USCV_ITS ---
Jennifer Warner Age: 70 Gender: F : 1955 Exam Date: 09/18/2025 15:22 Ordering Phys: Santy Andres MD Technologist: YE [place] [facility] [place]: WEEKLY F/U ON RIGHT SSV SVT HISTORY: HX OF SVT VISUALIZED ON PRIOR IMAGING PROCEDURES: Venous duplex imaging was performed in only the right lower extremity. The following venous structures were evaluated: common femoral vein, profunda vein, proximal portion of the greater saphenous vein, superficial femoral vein, and the popliteal vein. In addition, the posterior tibial and peroneal trunk were evaluated. FINDINGS: THERE APPEARS TO BE SVT IN THE SSV UNCHNAGED FROM PRIOR IMAGING LAST WEEK- NO EVIDENCE OF ANY NEW ACUTE THROMBUS CONCLUSIONS SVT in the small saphenous stable from 09/01/25 No new or progressed thrombus Matthew Jacobs MD (Electronically Signed) Final Date: 18 September 2025 16:20 S
[2025-09-23 13:31] LABS: Hematocrit 33.0 % (36-47); Hemoglobin 10.40 g/dL (11.27-16.99); Mean Corpuscular HGB Conc 31.5 g/dL (30-55); Mean Corpuscular Hemoglobin 29.2 pg (27-33); Mean Corpuscular Volume 92.7 fl (85-98); Nucleated Red Blood Cells % 0 %; Platelet Count 202 10^3/cmm (157-399); Red Blood Count 3.56 10^6/uL (3.85-5.65); White Blood Count 4.69 10^3/uL (3.29-11.43)
[2025-09-23 14:05] LABS: Alanine Aminotransferase 15 U/L (0-33); Albumin Level 3.7 g/dL (3.5-5.2); Alkaline Phosphatase 57 U/L (35-105); Anion Gap 14.9 (5-19); Aspartate Amino Transferase 15 U/L (0-32); Blood Urea Nitrogen 10 mg/dL (8-23); Calcium 8.9 mg/dL (8.5-10.5); Carbon Dioxide 26 mmol/L (22-29); Chloride 102 mmol/L (98-107); Creatinine Clr Calc Pharmacy 82.8232; Globulin 2.2 g/dL (1.3-4.6); Glucose 112 mg/dL (65-115); Osmolality Calculated 288 mOsm/kg (285-295); Potassium 3.9 mmol/L (3.5-5.1); Sodium 139 mmol/L (136-145); Total Protein 5.9 g/dL (6.6-8.7)
[2025-09-23] MEDS: bortezomib 3.5 mg SDV 2.8 MG SUBCUT (15:29)
[2025-09-23] MEDS: daratumumab-hyaluronidase-fihj 1,800 mg/15 mL SDV 1800 MG SUBCUT (15:30)
== END 2025-09-23 23:59 | disposition home or self-care (01) ==
PROVIDERS: PCP Family Medicine; Visit Provider Internal Medicine
DX: Z53.9 Procedure and treatment not carried out, unspecified reason; Z51.11 Encounter for antineoplastic chemotherapy; Z51.12 Encounter for antineoplastic immunotherapy; C90.00 Multiple myeloma not having achieved remission; Z79.899 Other long term (current) drug therapy; I80.01 Phlebitis and thrombophlebitis of superficial vessels of right lower extremity; F41.9 Anxiety disorder, unspecified; K21.9 Gastro-esophageal reflux disease without esophagitis; R00.2 Palpitations; R63.5 Abnormal weight gain; R60.9 Edema, unspecified
CPT/HCPCS: 36415; 80053; 85025; 93971; 96401; 96402; 99215; J9041; J9144; J9999; Q0162

== ENCOUNTER 2025-10-06 14:52 | Emergency (ER) | payer MEDICARE, OTHER, SELFPAY ==
[2025-10-06] VITALS (7 sets, daily range): BP systolic 132–165; BP diastolic 81–98; PULSE 84–112; RESP 17–23; TEMP 36.4; O2SAT 97–98; BMI 35.7
--- OUTSIDE RECORDS SUMMARY | 2025-10-06 14:56 | XMS_ITS | Encounter Summary ---
[facility] Address [address] [place] [address] Care Team Providers Care Live Out Nanny Name Role Phone Unavailable Primary Care Provider Unavailabl e Encounter Details Date Type Department Care Team (Latest Contact Info) Description 04/02/1998 Outpatient Historical [facility] [address] [facility] [address] [place] [address] Tony Kiran MD NO ADDRESS ON FILE Other sign and symptom in breast (Primary Dx) Social History Tobacco Use Types Packs/Day Years Used Date Smoking Tobacco: Never Assessed Comments Unknown Sex and Gender Information Value Date Recorded Sex Assigned at Not on file 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
--- OUTSIDE RECORDS SUMMARY | 2025-10-06 14:56 | XMS_ITS | Clinical Summary ---
Author Organization [facility] Administrative Offices Address [address] [place] [address] Care Team Providers Care Baster Hand Name Role Phone Unavailable Primary Care Provider Unavailabl e Allergies No known active allergies Medications irbesartan-hydro CHLOROthiazide (AVALIDE) 150-12.5 mg tablet Take 1 Tablet by mouth daily. 04/19/2022 Active ibuprofen (MOTRIN) 200 mg tablet Take 600 mg by mouth every 6 hours as needed for Pain, Mild. Active multivitamin (DAILY-BRIAN) tablet Take 1 Tablet by mouth daily. Active cetirizine (ZyrTEC) 10 mg tablet Take 10 mg by mouth daily. 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 Gender Identity Not on file Sexual Orientation Not on file Last Filed Vital Signs Vital Sign Reading Time Taken Comments Blood Pressure 138/82 12/24/2024 11:17 AM CDT Pulse 64 05/31/2022 10:11 AM CDT Temperature - - Respiratory Rate - - Oxygen Saturation - - Inhaled Oxygen Concentration - - Weight 106.6 kg (235 lb) 12/24/2024 11:17 AM CDT Height 172.7 cm (5' 8 ) 12/24/2024 11:17 AM CDT Body Mass Index 35.73 12/24/2024 11:17 AM CDT Plan of Treatment Health Maintenance Due Date Last Done Comments COLORECTAL SCREENING 1999 Colorectal Cancer Screening 1999 FIT-DNA Q 3 years 1999 FIT/FOBT Q 1 year 1999 Flex Sig/CT Colonography Q 5 years 1999 DTAP/TDAP/TD VACCINES (1 - Tdap) 03/12/2016 03/11/20 16 OSTEOPOROSIS SCREENING 2019 BREAST CANCER SCREENING 11/18/2022 11/18/2021 INFLUENZA VACCINE (#1) 2025 , 08/30/2023, 09/21/2022, Additional history exists COVID-19 Vaccine (2 - 2024-2 6 season) 2025 04/13/2021 RSV VACCINE (60+ or ) (1 - 1-dose 75+ series) 2029 ZOSTER VACCINE Completed 01/13/2022, 10/20/2021 PNEUMOCOCCAL VACCINE 50+ YEARS Completed 08/30/2023 Insurance MEDICARE PART A AND B [employer]ET[employer] MEDICARE SUPP AESSI
--- OUTSIDE RECORDS SUMMARY | 2025-10-06 14:56 | XMS_ITS | Clinical Summary ---
Author Organization [facility] Address [address] 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
--- OUTSIDE RECORDS SUMMARY | 2025-10-06 14:56 | XMS_ITS | Encounter Summary ---
Author Organization [facility] Address [address] [place] [address] Care Team Providers Care Termite Helper Name Role Phone Unavailable Primary Care Provider Unavailabl e Encounter Details Date Type Department Care Team (Latest Contact Info) Description 10/17/1999 Outpatient Historical [facility] [address] [place] [address] Tony Kiran MD NO ADDRESS ON FILE Family history of malignant neoplasm of breast (Primary Dx) Social History Tobacco Use Types Packs/Day Years Used Date Smoking Tobacco: Never Assessed Comments Unknown Sex and Gender Information Value Date Recorded Sex Assigned at Not on file 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
--- NOTE | 2025-10-06 14:57 | ECG_ITS ---
[facility]: 2025-10-06 Pat Name: Jennifer Warner Department: Room: Gender: Female Feltmaker: : [id number] Requested By: Jeffrey Traylor Order Number: [id number] Reading MD: ROSETTA LY Measurements Intervals Hardin Rate: 113 P: 0 AL: 0 QRS: 72 QRSD: 96 T: 47 QT: 321 QTc: 440 Interpretive Statements ATRIAL FIBRILLATION WITH RAPID VENTRICULAR RESPONSE LOW QRS VOLTAGE IN PRECORDIAL LEADS [QRS DEFLECTION < 1.0 mV IN CHEST LEADS] MODERATE ST DEPRESSION [0.05+ mV ST DEPRESSION] Compared to ECG 05/29/2020 10:58:35 ST (T wave) deviation now present Sinus rhythm no longer present T-wave abnormality no longer present Electronically Signed On 10-07-2025 20:18:31 A P MANAGER by ROSETTA LY [email or web address]
[2025-10-06 15:32] LABS: Hematocrit 33.9 % (36-47); Hemoglobin 10.40 g/dL (11.27-16.99); Mean Corpuscular HGB Conc 30.7 g/dL (30-55); Mean Corpuscular Hemoglobin 28.2 pg (27-33); Mean Corpuscular Volume 91.9 fl (85-98); Nucleated Red Blood Cells % 0 %; Platelet Count 242 10^3/cmm (157-399); Red Blood Count 3.69 10^6/uL (3.85-5.65); White Blood Count 4.52 10^3/uL (3.29-11.43)
[2025-10-06 16:04] LABS: Alanine Aminotransferase 10 U/L (0-33); Albumin Level 3.7 g/dL (3.5-5.2); Alkaline Phosphatase 63 U/L (35-105); Anion Gap 19.7 (5-19); Aspartate Amino Transferase 13 U/L (0-32); Blood Urea Nitrogen 8 mg/dL (8-23); Calcium 8.8 mg/dL (8.5-10.5); Carbon Dioxide 22 mmol/L (22-29); Chloride 101 mmol/L (98-107); Globulin 2.4 g/dL (1.3-4.6); Glucose 95 mg/dL (65-115); Osmolality Calculated 286 mOsm/kg (285-295); Potassium 3.7 mmol/L (3.5-5.1); Sodium 139 mmol/L (136-145); Thyroid Stimulating Hormone 1.02 uIU/mL (0.27-4.20); Total Protein 6.1 g/dL (6.6-8.7)
--- NOTE | 2025-10-06 16:13 | XRR_ITS ---
PROCEDURE INFORMATION: Exam: XR Chest Exam date and time: 10/06/2025 4:17 PM Age: 70 years old Clinical indication: Cough and dyspnea; Afib; Additional info: Dyspnea/cough TECHNIQUE: Imaging protocol: Radiologic exam of the chest. Views: 1 view. COMPARISON: CT chest w con* [id number] 06/17/2025 9:31 AM FINDINGS: Lungs: Unremarkable. No consolidation or mass. Pleural spaces: A small left-sided pleural effusion is noted. Heart/Mediastinum: Mild cardiomegaly is noted. Bones/joints: Unremarkable. XR/XR chest 1V portable [id number] IMPRESSION: Cardiomegaly with small left pleural effusion
--- NOTE | 2025-10-06 16:14 | W.ED.ARRPALP ---
HPI - Arrhythmia/Palpitations General: Chief Complaint: Arrhythmia/Palpitations Stated Complaint: a fib Time Seen by Provider: 10/06/25 15:07 History of Present Illness: 70-year-old female presents to the emergency room with the report of new onset A-fib. Patient has a history of Multiple myeloma she is being prepped for a stem cell transplant evidently she had been at [facility] had evaluation there in preparation for her transplant. She was called today and told that she had atrial fibrillation advised to come to the nearest emergency room. She has noted palpitations and irregular heart rate recently. She has markedly increased swelling of her lower extremities that she had been told was due to her high dose dexamethasone. She has not really had significant amount of orthopnea. She has been found to have a superficial thrombophlebitis has been taking aspirin but is not on any long-term anticoagulants. She is not on any medications for rate control. Related Data Home Medications ?Medication ?Instructions ?Recorded ?Confirmed albuterol sulfate 90 mcg/actuation 1 puff inhalation Q6H PRN 05/29/20 10/06/25 aerosol inhaler Shortness Of Breath irbesartan 150 1 tab PO DAILY 06/12/25 10/06/25 mg-hydrochlorothiazide 12.5 mg tablet cetirizine 10 mg tablet 10 mg PO DAILY 06/19/25 10/06/25 Previous Rx's ?Medication ?Instructions ?Recorded ferrous sulfate 325 mg (65 mg 325 mg PO DAILY #30 tabs 06/26/25 iron) tablet dexamethasone 20 mg tablet 20 mg PO DAILY #30 tabs 07/14/25 fluconazole 100 mg tablet 100 mg PO DAILY fungal infection 07/14/25 prevention #90 tabs ondansetron HCl 4 mg tablet 4 mg PO Q6H PRN nausea and 07/14/25 vomiting #30 tabs prochlorperazine maleate 10 mg 10 mg PO Q4H PRN mild nausea #30 07/14/25 tablet (Compazine) tabs sulfamethoxazole 800 1 tab PO MOWEFR infection 07/14/25 mg-trimethoprim 160 mg tablet prevention #24 tabs (Bactrim DS) valacyclovir 500 mg tablet 500 mg PO BID #60 tabs 07/14/25 dexamethasone 20 mg tablet 20 mg PO DIRECTED 6 days #30 07/15/25 tabs nirmatrelvir 150 mg (10)-ritonavir See Rx Instructions PO .COMPLEX 07/30/25 100 mg (10) tablets in a dose pack #20 ea (Paxlovid) furosemide 40 mg tablet (Lasix) 40 mg PO DAILY PRN edema #60 tabs 08/24/25 lorazepam 0.5 mg tablet 0.25 mg (1/2 x 0.5 mg) PO TID PRN 09/16/25 nausea and vomiting #30 tabs azithromycin 250 mg tablet See Rx Instructions PO .COMPLEX #6 09/23/25 (Zithromax Z-Gopi) tabs potassium chloride 20 mEq 20 meq PO BID #180 tabs 09/23/25 tablet,extended release(part/cryst) lenalidomide 15 mg capsule 15 mg PO DAILY #14 caps 09/28/25 alprazolam 0.25 mg tablet (Xanax) 0.25 mg PO TID #90 tabs 10/06/25 aspirin 325 mg tablet 325 mg PO DAILY #30 tabs 10/06/25 metoprolol succinate 25 mg 12.5 mg (1/2 x 25 mg) PO DAILY #15 10/06/25 tablet,extended release 24 hr tabs (Toprol XL) apixaban 5 mg tablet (Eliquis) 5 mg PO BID #74 tabs 10/07/25 Allergies Allergy/AdvReac Type Severity Reaction Status Date / Time No Known Allergies Allergy Verified 09/30/25 09:46 Review of Systems Const: Denies: fever(s) or chills Card: Reports: palpitations, irregular heart rhythm, edema and swelling of feet/ankles; Denies: chest pain Resp: Denies: dyspnea GI: Denies: abdominal pain : Denies: dysuria, urinary frequency or urinary urgency Musc: Denies: neck pain or back pain Skin/Breast: Denies: rash PFSH ED PFSH: Medical History CKD (chronic kidney disease) stage 2, GFR 60-89 ml/min Hypertension Surgical History History of cholecystectomy Family History Other CAD (coronary artery disease) Denies family history of Cancer Social History Smoking and tobacco/nicotine status: never used tobacco/nicotine Alcohol intake: never Substance/Drug Use: never Household members: spouse Marital status: 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 Exam Const: GENERAL APPEARANCE: cooperative and comfortable ORIENTATION/CONSCIOUSNESS: Yes awake, Yes oriented to person, Yes oriented to place and Yes oriented to time HENMT: COMMON NORMALS: normocephalic, atraumatic and hearing grossly normal bilaterally HEAD & SCALP: normocephalic and atraumatic Resp: COMMON NORMALS: normal respiratory effort, No retractions, No use of accessory muscles and clear to auscultation bilaterally AUSCULTATION: clear to auscultation bilaterally Cardio: COMMON NORMALS: regular rate and No murmurs present (Cardio) RATE: regular rate RHYTHM: abnormal rhythm irregularly irregular GI: COMMON NORMALS: Soft to palpation and No hepatosplenomegaly present AUSCULTATION: Yes normoactive bowel sounds PALPATION: Yes Soft to palpation, No Tenderness to palpation present (GI), No Guarding due to palpation present (GI) and Yes No hepatosplenomegaly present Extremity: COMMON NORMALS: normal to inspection, capillary refill normal, no clubbing, cyanosis or edema, no calf tenderness and no pedal edema Neuro: SENSORIUM/ORIENTATION: Yes oriented to person, Yes oriented to place and Yes oriented to time Skin: COMMON NORMALS: no rashes or lesions noted GENERAL SKIN EXAM: no rashes or lesions noted Course Vital Signs: Vital signs: Vital Signs Temperature 97.5 F L 10/06/25 14:58 Pulse Rate 84 10/06/25 18:33 Respiratory Rate 20 H 10/06/25 18:00 Blood Pressure 142/85 10/06/25 18:33 Pulse Oximetry 98 10/06/25 18:33 Oxygen Delivery Me thod Room Air 10/06/25 14:58 MDM - Arrhythmia/Palpitations Medical Decision Making Medical decision making Social determinants: Patient has multiple myeloma. Is receiving care from some distance. I reviewed the patient's medical record. I reviewed the patient's current home meds. Alternate historians: None Differential diagnosis: Atrial fibrillation, unknown arrhythmia, palpitations Lab Review: Labs reviewed. CBC shows a white count of 4.52 hemoglobin of 10 4 platelets in normal range. The remainder of the indices are normal. Chemistries show slight anion gap of 19.7 electrolytes and renal function are otherwise normal creatinine 0.7 potassium 3.7. Liver functions normal. UA is unremarkable. Imaging: Chest x-ray shows small pleural effusion Assessment of risk Level of risk: Moderate Hospitalization considerations: Consideration for hospitalization however rate is well-controlled Reexamination: Unchanged Assessment and plan: Patient does have atrial fibrillation. She is not having any shortness of breath or chest pain at this time. Discussed with cardiology on-call. Will initiate low-dose beta-ramesh. Her rate has been well-controlled while she was in emergency room she does not wish to to be hospitalized and has intermittent A-fib while here. We have seen both atrial fibrillation and episodes of normal sinus rhythm. Will start patient on full dose aspirin. And set her up for short-term follow-up visit with cardiology. If she has any worsening or change symptoms shortness of breath or chest comfort she should return to the emergency room. Lab Data 10/06/25 15:20 10/06/25 15:20 Radiology Impressions Chest X-Ray 10/06/25 16:13 IMPRESSION: Cardiomegaly with small left pleural effusion Laboratory Results WBC 4.52 10^3/uL (3.29-11.43) 10/06/25 15:20 RBC 3.69 10^6/uL (3.85-5.65) L 10/06/25 15:20 Hgb 10.40 g/dL (11.27-16.99) L 10/06/25 15:20 Hct 33.9 % (36-47) L 10/06/25 15:20 MCV 91.9 fl (85-98) 10/06/25 15:20 MCH 28.2 pg (27-33) 10/06/25 15:20 MCHC 30.7 g/dL (30-55) 10/06/25 15:20 RDW 16.8 % (12.1-15.1) H 10/06/25 15:20 Plt Count 242 10^3/cmm (157-399) 10/06/25 15:20 MPV 10.0 fL (7.4-10.4) 10/06/25 15:20 Neut % (Auto) 62.4 % 10/06/25 15:20 Lymph % (Auto) 19.2 % 10/06/25 15:20 Weber % (Auto) 15.9 % 10/06/25 15:20 Eos % (Auto) 0.9 % 10/06/25 15:20 Baso % (Auto) 0.9 % 10/06/25 15:20 Neut # (Auto) 2.82 10^3/uL (1.8-7.7) 10/06/25 15:20 Lymph # (Auto) 0.9 10^3/uL (0.8-4.8) 10/06/25 15:20 Weber # (Auto) 0.7 10^3/uL (0.2-0.9) 10/06/25 15:20 Eos # (Auto) 0.0 10^3/uL (0.0-0.8) 10/06/25 15:20 Baso # (Auto) 0.0 10^3/uL (0.0-0.1) 10/06/25 15:20 Nucleated RBC % (auto) 0 % 10/06/25 15:20 Nucleated RBCs # 0.0 /100WBC 10/06/25 15:20 Sodium 139 mmol/L (136-145) 10/06/25 15:20 Potassium 3.7 mmol/L (3.5-5.1) 10/06/25 15:20 Chloride 101 mmol/L (98-107) 10/06/25 15:20 Carbon Dioxide 22 mmol/L (22-29) 10/06/25 15:20 Anion Gap 19.7 (5-19) H 10/06/25 15:20 BUN 8 mg/dL (8-23) 10/06/25 15:20 Creatinine 0.7 mg/dL (0.5-0.9) 10/06/25 15:20 GFR Calculation Not Reportable 10/06/25 15:20 Glucose 95 mg/dL (65-115) 10/06/25 15:20 Calculated Osmolality 286 mOsm/kg (285-295) 10/06/25 15:20 Calcium 8.8 mg/dL (8.5-10.5) 10/06/25 15:20 Total Bilirubin 0.5 mg/dL (0.15-1.2) 10/06/25 15:20 AST 13 U/L (0-32) 10/06/25 15:20 ALT 10 U/L (0-33) 10/06/25 15:20 Alkaline Phosphatase 63 U/L (35-105) 10/06/25 15:20 Troponin T Baseline 15 ng/L (0-10) H 10/06/25 15:20 Troponin T 60 Minute 14.64 ng/L (0-10) H 10/06/25 17:03 Delta Troponin T -0.36 ABS# (0-10) L 10/06/25 17:03 NT-Pro-B Natriuret Pep 869 pg/mL (0-125) H 10/06/25 15:20 Total Protein 6.1 g/dL (6.6-8.7) L 10/06/25 15:20 Albumin 3.7 g/dL (3.5-5.2) 10/06/25 15:20 Globulin 2.4 g/dL (1.3-4.6) 10/06/25 15:20 TSH 1.02 uIU/mL (0.27-4.20) 10/06/25 15:20 Urine Color Yellow (Yellow) 10/06/25 17:02 Urine Appearance Clear (CLEAR) 10/06/25 17:02 Urine pH 6.0 (5-7) 10/06/25 17:02 Ur Specific [place] 1.007 (1.005-1.030) 10/06/25 17:02 Urine Protein Negative (Negative) 10/06/25 17:02 Urine Glucose (UA) Negative (Normal) 10/06/25 17:02 Urine Ketones Negative (Negative) 10/06/25 17:02 Urine Blood Negative (Negative) 10/06/25 17:02 Urine Nitrate Negative (Negative) 10/06/25 17:02 Urine Bilirubin Negative (Negative) 10/06/25 17:02 Urine Urobilinogen 1.0 mg/dL (Negative) 10/06/25 17:02 Ur Leukocyte Esterase Negative (Negative) 10/06/25 17:02 Urine RBC 0-2 /hpf (0-2) 10/06/25 17:02 Urine WBC 0-5 /hpf (0-5) 10/06/25 17:02 Ur Squamous Epith Cells 0-5 /hpf (0-5) 10/06/25 17:02 Amorphous Sediment Not Reportable 10/06/25 17:02 Urine Bacteria None seen /hpf (NONE) 10/06/25 17:02 Hyaline Casts 0-4 /lpf H 10/06/25 17:02 All radiology interpretation(s) finalized by discharge Discharge Plan Discharge Patient Disposition: Home Clinical Impression: Atrial fibrillation, Multiple myeloma not having achieved remission Anemia Qualifiers: Anemia type: other cause Other causes of anemia: other cause, not classified Qualified Code(s): D64.89 - Other specified anemias Condition: Stable Prescriptions: New metoprolol succinate [Toprol XL] 25 mg tablet extended release 24 hr 12.5 mg PO DAILY Qty: 15 0RF aspirin 325 mg tablet 325 mg PO DAILY Qty: 30 0RF Discontinued aspirin [Adult Aspirin Regimen] 81 mg tablet,delayed release (DR/EC) 81 mg PO DAILY Qty: 30 0RF No Action fluconazole 100 mg tablet 100 mg PO DAILY Qty: 90 2RF valacyclovir 500 mg tablet 500 mg PO BID Qty: 60 5RF Rx Instructions: Continue 3 months post treatment for prevention of viral infection ondansetron HCl 4 mg tablet 4 mg PO Q6H PRN (Reason: nausea and vomiting) Qty: 30 3RF prochlorperazine maleate [Compazine] 10 mg tablet 10 mg PO Q4H PRN (Reason: mild nausea) Qty: 30 3RF sulfamethoxazole-trimethoprim [Bactrim DS] 800-160 mg tablet 1 tab PO MOWEFR Qty: 24 5RF dexamethasone 20 mg tablet 20 mg PO DAILY Qty: 30 4RF Rx Instructions: Take in the morning on days 1,2,8,9,15,16 of 21 day cycle. Take with food. ferrous sulfate 325 mg (65 mg iron) tablet 325 mg PO DAILY Qty: 30 4RF azithromycin [Zithromax Z-Gopi] 250 mg tablet See Rx Instructions PO .COMPLEX Qty: 6 3RF Rx Instructions: For 250 mg dose pack: take 500 mg today (day 1), then 250 mg for 4 days (days 2-5) PO alprazolam [Xanax] 0.25 mg tablet 0.25 mg PO TID MDD 6 tabs Qty: 90 2RF Rx Instructions: 1-2 tablets 3 times daily as needed for anxiety related to steroids Eliquis 5 mg tablet 5 mg PO BID Qty: 74 0RF Rx Instructions: 2 tablets twice daily for 7days then 1 tablet twice daily. will need new script for next refill. Paxlovid 150 mg (10)- 100 mg (10) tablets,dose pack See Rx Instructions PO .COMPLEX Qty: 20 3RF Rx Instructions: take ONE 150 mg tablet of nirmatrelvir with ONE 100 mg tablet of ritonavir twice daily for 5 days PO furosemide [Lasix] 40 mg tablet 40 mg PO DAILY MDD 2 tablets PRN (Reason: edema) Qty: 60 3RF lorazepam 0.5 mg tablet 0.25 mg PO TID PRN (Reason: nausea and vomiting) Qty: 30 3RF Rx Instructions: as needed for SEVERE nausea and vomiting or anxiety/insomnia. may increase to 1 tablet three times daily if 1/2 tablet not effective potassium chloride 20 mEq tablet,ER particles/crystals 20 meq PO BID Qty: 180 4RF Rx Instructions: 1 tablet with each 40 mg furosemide tablet up to two tabs daily lenalidomide 15 mg capsule 15 mg PO DAILY Qty: 14 0RF Rx Instructions: take with or without food take on days 1-14 of 21 day cycle swallow whole with glass of water; do not open, crush, chew , break, or dissolve [id number] albuterol sulfate 90 mcg/actuation HFA aerosol inhaler 1 puff INHALATION Q6H PRN (Reason: Shortness Of Breath) cetirizine 10 mg Tablet 10 mg PO DAILY dexamethasone 20 mg Tablet 20 mg PO DIRECTED 6 Days Qty: 30 4RF Rx Instructions: take on days 1,2,8,9,15,16 of 21 day cycle take in the morning with food irbesartan-hydrochlorothiazide 150-12.5 mg tablet 1 tab PO DAILY Discharge Orders: Discharge ED (Routine); Ordered 10/06/25 Ordered By: Jeffrey Hickman Referrals: Michael Alston MD [Primary Care Provider, Family Practice] Discharge Diet: Usual diet Discharge Activity: Increase activity as tolerated Patient Instructions: Opioid Safety, Pain Management, Patient Portal & Denzel Instructions Activity Restrictions/Additional Instructions: Thank you for choosing [facility] for your healthcare needs today. It is very important that you follow up as instructed or that you return to the Emergency Department should you have concerns or if your condition changes or worsens in any way. Emergency department visits are focused on emergent conditions, in some cases you may require further evaluation on an outpatient basis. You were seen in the emergency room with new onset atrial fibrillation. Her rate is well-controlled. . Reviewed your case with on-call cardiology recommend that you increase to the full dose aspirin. Instruction on Toprol-XL 12-1/2 mg once daily. And we will set you up for a short-term follow-up with the cardiology clinic. (Please note that included in your discharge packet is information concerning opioid safety and pain management. This information is given to all patients were discharged from the ER regardless of their discharge diagnosis or the medicines they usually take or are prescribed.) Print Language: Nepali Coding Level of Care Code ED Java Software for Solange Kamara
[2025-10-06] MEDS: metoprolol succinate ER (24 HR) 25 mg Tablet PO (16:55)
[2025-10-06 17:02] LABS: NT Pro B Type Natriuretic Pept 869 pg/mL (0-125)
[2025-10-06 17:22] LABS: Troponin(5th) Baseline 15 ng/L (0-10)
[2025-10-06 17:26] LABS: Glucose Urine UA Negative (Normal); Nitrate Urine Negative (Negative); Specific Gravity, Urine 1.007 (1.005-1.030)
[2025-10-06 17:28] LABS: Add Urine Microscopic? YES
== END 2025-10-06 18:34 | disposition home or self-care (01) ==
PROVIDERS: Emergency Provider Family Medicine; PCP Family Medicine
DX: I48.91 Unspecified atrial fibrillation (principal); C90.00 Multiple myeloma not having achieved remission; D64.89 Other specified anemias; Z79.01 Long term (current) use of anticoagulants; I12.9 Hypertensive chronic kidney disease with stage 1 through stage 4 chronic kidney disease, or unspecified chronic kidney disease; N18.2 Chronic kidney disease, stage 2 (mild)
CPT/HCPCS: 36415; 71045; 80053; 81001; 83880; 84443; 84484; 85025; 93005; 99214; 99285; J9999

== ENCOUNTER 2025-10-07 09:01 | Outpatient (CLI) | payer MEDICARE, OTHER, SELFPAY ==
--- NOTE | 2025-10-07 09:00 | CT_ITS ---
WS: [id number] CT CHEST ANGIOGRAPHY WITH REFORMATS HISTORY: orthopnea TECHNIQUE: Contiguous axial images are obtained through the chest during arterial injection of intravenous contrast. Images are reconstructed to evaluate the pulmonary arteries. MIP imaging also reviewed. All CT scans at [facility] use at least one of these dose optimization techniques: automated exposure control; mA and/or kV adjustment per patient size (includes targeted exams where dose is matched to clinical indication); or iterative reconstruction. CONTRAST: Omnipaque 350; 100 mL IV. DLP: 441.15 mGy.cm COMPARISON: 06/17/2025 Good opacification of the pulmonary arteries. No central pulmonary emboli. Small nonocclusive emboli are noted beginning in the segmental branch of the RIGHT lower lobe. These are very small emboli but are also noted extending into the subsegmental branches. Suspect there are probably additional very peripheral emboli in the LEFT lower lobe but these are not as well visualized. No large central emboli. No RIGHT heart strain. Normal size aorta. Focal soft tissue opacification in the medial LEFT upper lobe measures 15 mm that is new. This is probably an area of atelectasis. No adenopathy. Small hiatal hernia. Reidentified are several hepatic cysts. Prior cholecystectomy. High density cyst from the posterior medial LEFT kidney measures 2.0 cm and is stable. Reidentified is a healing fracture involving the RIGHT lateral seventh rib. Sclerotic focus in slight expansion involving the LEFT lateral fifth rib. Mild compression deformity L1. CT/CT angio chest PE protcl [id number] IMPRESSION: 1. Acute pulmonary emboli beginning in the RIGHT lower lobe segmental branches extending into the subsegmental branches. Suspect smaller peripheral LEFT lowe r lobe emboli also. 2. No central PE. 3. LEFT heart enlargement. No RIGHT heart strain. 4. Prior cholecystectomy. Notified Mehreen Alfred NP at 10/07/2025 9:40 AM.
[2025-10-07] MEDS: iohexol 350 mg/mL 500 mL Btl (per mL) IV (09:18)
== END 2025-10-07 09:02 | disposition home or self-care (01) ==
LOC: RAD 09:03
PROVIDERS: Absent Provider Internal Medicine; PCP Family Medicine; Visit Provider Nurse Practitioner
DX: I26.99 Other pulmonary embolism without acute cor pulmonale (principal); I48.91 Unspecified atrial fibrillation; R79.89 Other specified abnormal findings of blood chemistry; J98.4 Other disorders of lung; K44.9 Diaphragmatic hernia without obstruction or gangrene; K76.89 Other specified diseases of liver; Z90.49 Acquired absence of other specified parts of digestive tract; N28.1 Cyst of kidney, acquired; I51.7 Cardiomegaly; S22.31XD Fracture of one rib, right side, subsequent encounter for fracture with routine healing; X58.XXXD Exposure to other specified factors, subsequent encounter
CPT/HCPCS: 71275

== ENCOUNTER 2025-10-07 10:29 | Oncology outpatient (recurring) (ONCR) | payer MEDICARE, OTHER, SELFPAY ==
[2025-10-06 10:46] LABS: Hematocrit 33.4 % (36-47); Hemoglobin 10.40 g/dL (11.27-16.99); Mean Corpuscular HGB Conc 31.1 g/dL (30-55); Mean Corpuscular Hemoglobin 28.7 pg (27-33); Mean Corpuscular Volume 92.3 fl (85-98); Nucleated Red Blood Cells % 0 %; Platelet Count 248 10^3/cmm (157-399); Red Blood Count 3.62 10^6/uL (3.85-5.65); White Blood Count 4.44 10^3/uL (3.29-11.43)
[2025-10-06 11:09] LABS: Alanine Aminotransferase 10 U/L (0-33); Albumin Level 3.7 g/dL (3.5-5.2); Alkaline Phosphatase 61 U/L (35-105); Anion Gap 13.8 (5-19); Aspartate Amino Transferase 10 U/L (0-32); Blood Urea Nitrogen 10 mg/dL (8-23); Calcium 8.8 mg/dL (8.5-10.5); Carbon Dioxide 26 mmol/L (22-29); Chloride 100 mmol/L (98-107); Creatinine Clr Calc Pharmacy 83.2504; Free T4 Free Thyroxine 1.37 ng/dL (0.82-1.77); Globulin 2.0 g/dL (1.3-4.6); Glucose 102 mg/dL (65-115); Osmolality Calculated 281 mOsm/kg (285-295); Potassium 3.8 mmol/L (3.5-5.1); Sodium 136 mmol/L (136-145); Thyroid Stimulating Hormone 0.76 uIU/mL (0.27-4.20); Total Protein 5.7 g/dL (6.6-8.7)
== END 2025-10-14 23:59 | disposition home or self-care (01) ==
PROVIDERS: Internal Medicine; PCP Family Medicine; Visit Provider Nurse Practitioner
DX: Z53.9 Procedure and treatment not carried out, unspecified reason (principal)
CPT/HCPCS: 80053; 82024; 82533; 84439; 84443; 85025; 99213; 99214